=== PATIENT | male | born 1960 | race Caucasian/White ===

== ENCOUNTER → 2019-12-01 10:01 | Outpatient (POV) | payer OTHER, SELFPAY ==
[2019-12-01 10:29] VITALS: BP 142/89; PULSE 88; RESP 18; O2SAT 98; BMI 27.1
--- NOTE | 2019-12-01 15:08 | HMH.PMCON ---
Assessment and Plan (1) Degenerative joint disease (DJD) of lumbar spine Current visit: Yes Status: Chronic Qualifiers: Spinal osteoarthritis complication: with radiculopathy Qualified Code(s): M47.26 - Other spondylosis with radiculopathy, lumbar region Category: Medical Code(s): M47.816 - Spondylosis without myelopathy or radiculopathy, lumbar region (2) Lumbar radiculopathy Current visit: Yes Status: Chronic Category: Medical Code(s): M54.16 - Radiculopathy, lumbar region - Assessment and plan all Dx Assessment and Plan for all problems:: We will set the patient up for an L4-L5 lumbar epidural steroid injection and do believe it would be beneficial given his symptomology. I will follow-up with him after his injection reassess his symptoms at that time he is been instructed to call the office if he has any issues prior to his next appointment. Dr. Oreilly has reviewed this note and agrees with this plan of care. This note was dictated using voice recognition software and may contain errors or omissions HPI - Data of Consult Consult date: 12/01/19 Requesting Physician: Yamileth Campso APRN Primary Care Provider: JYOTI Sanon - Consult Narrative Reason for consult: Back pain History of present illness: Mr. Maharaj is a 59 year old male who presents today for consultation and risk to his low back pain. Patient has low back pain radiating down his left leg. Patient has difficulty with twisting and lifting and bending. Patient states that ice packs are beneficial in regards to alleviating his pain. Patient states that he has pain all the way to his toes. He rates his pain a 5 out of 10. Patient is tried chiropractic therapy and medications without much relief. He is continuing a home stretching program he does have an MRI showing degeneration and disc bulges he is interested in injective therapy. Patient is not on any anticoagulation. He has had pain over 6 months. CC: Yamileth Campos APRN [facility] History I have reviewed the patient's past medical history: Yes *Have you ever received a pneumonia vaccine?: Yes *Have you received a flu vaccine this season?: Yes Laterality Cases: Right: Arthroscopy Shoulder Other Surgeries: Yes: Appendectomy Amputation: No Fractures: No - *Social History Smoking Status: Current every day smoker Tobacco Type: cigarettes # Packs/Day (cigarettes): 2 Alcohol Intake: never *Occupational Status:: employed Housing: apartment Household Members: other *Travel in the last 8 weeks: None Family Hx:: Unable to obtain Review of Systems - Review of Systems ROS General: no recent weight change, no fever, no sleep disturbances Respiratory: no cough, no shortness of air, no recurring pulmonary infections Cardiovascular/Peripheral Vascular: No chest pain, No palpitations, no edema, no shortness of breath. Gastrointestinal: no new onset incontinence, normal bowel movements reported Genitourinary: no new onset incontinence Musculoskeletal: Back pain, leg pain Psychiatric: normal mood/ affect Neurological: [denies new onset weakness in extremities], [denies new onset balance issues] Objective Vital signs: Pulse Resp BP Pulse Ox 88 18 142/89 H 98 12/01/19 10:29 12/01/19 10:29 12/01/19 10:29 12/01/19 10:29 Narrative: Physical Exam General: Alert and oriented x3, no acute distress, pleasant and cooperative, [on room air] Lungs: Resps E/U, Symmetrical chest expansion, Eyes: PERRL Musculoskeletal: Flexion and extension of lumbar spine somewhat guarded secondary to pain, deep tendon reflexes normal, strength in upper and lower extremities [5/5], [abnormal gait noted] Neurological: speech clear, spa associate equal, no gross sensory deficits
== END ==
PROVIDERS: PCP Nurse Practitioner Family; Visit Provider Clinical Nurse Specialist Family Health
DX: M47.26 Other spondylosis with radiculopathy, lumbar region (principal); Z87.39 Personal history of other diseases of the musculoskeletal system and connective tissue; Z72.0 Tobacco use
CPT/HCPCS: 99202

== ENCOUNTER → 2019-12-28 12:56 | Outpatient (POV) | payer OTHER, SELFPAY ==
[2019-12-28 13:33] VITALS: BP 134/82; PULSE 67; RESP 18; O2SAT 98; BMI 27.1
--- NOTE | 2019-12-28 14:13 | HMH.PAINSOAP ---
[facility] Pain Management SOAP Note Subjective:: Patient is a pleasant 59-year-old white male who presents today for follow-up after his first lumbar epidural steroid injection. Patient is doing extremely well rating his pain a 3 out of 10. He is over 80% better. Patient is interested in pursuing the 3 epidural steroid injections in the series of epidural injections. Given the efficacy of the last one I do believe that would be beneficial. He is not on any anticoagulation therapy. He is continuing his anti-inflammatories and continuing a home stretching program. ROS General: no recent weight change, no fever, no sleep disturbances Respiratory: no cough, no shortness of air, no recurring pulmonary infections Cardiovascular/Peripheral Vascular: No chest pain, No palpitations, no edema, no shortness of breath. Gastrointestinal: no new onset incontinence, normal bowel movements reported Genitourinary: no new onset incontinence Musculoskeletal: Back pain, leg pain Psychiatric: normal mood/ affect, Neurological: [denies new onset weakness in extremities], [denies new onset balance issues] Objective:: Physical Exam General: Alert and oriented x3, no acute distress, pleasant and cooperative, [on room air] Lungs: Resps E/U, Symmetrical chest expansion, Eyes: PERRL Musculoskeletal: Flexion and extension of lumbar spine somewhat guarded secondary to pain, deep tendon reflexes normal, strength in upper and lower extremities [5/5], slightly antalgic gait noted Neurological: speech clear, environmental protection inspector equal, no gross sensory deficits Assessment:: Degenerative disc disease lumbar spine with lumbar radiculopathy Plan:: We will set up his second L4-L5 lumbar epidural steroid injection. Patient has been instructed to call the office if he has any issues prior to his next appointment. I will follow-up with him after this reassess his symptoms at that time .Dr. Oreilly has reviewed this note and agrees with this plan of care. This note was dictated using voice recognition software and may contain errors or omissions [facility] History I have reviewed the patient's past medical history: Yes Medical History: Reports:: Hyperlipidemia Denies:: Cancer, Diabetes Mellitus Type 2, Seizures *Have you ever received a pneumonia vaccine?: Yes *Have you received a flu vaccine this season?: Yes Laterality Cases: Right: Arthroscopy Shoulder Other Surgeries: Yes: Appendectomy Amputation: No Fractures: No - *Social History Smoking Status: Current every day smoker Tobacco Type: cigarettes # Packs/Day (cigarettes): 2 Alcohol Intake: current Alcohol Intake Frequency:: holidays/special occasions only *Occupational Status:: other Housing: apartment Household Members: other *Travel in the last 8 weeks: None Family Hx:: Unable to obtain
== END ==
PROVIDERS: PCP Nurse Practitioner Family; Visit Provider Clinical Nurse Specialist Family Health
DX: M51.16 Intervertebral disc disorders with radiculopathy, lumbar region (principal); Z87.39 Personal history of other diseases of the musculoskeletal system and connective tissue; Z72.0 Tobacco use
CPT/HCPCS: 99212

== ENCOUNTER → 2020-02-01 14:46 | Outpatient (POV) | payer OTHER, SELFPAY ==
--- NOTE | 2020-02-01 15:36 | HMH.VVPMSO ---
[facility] Virtual Visit SOAP Consent for virtual visit:: With the recent concerns about the COVID-19, we are trying to minimize exposure to you by shifting to telehealth appointments whenever possible. It restricts me from seeing you in person, but the trade off is protecting you during this pandemic. Can you see and hear me okay, and do you consent to this option? If not, I would be happy to see if we can reschedule your appointment in the future, when feasible. Has patient consented to this virtual visit?: Yes Subjective:: This visit was performed via telemedicine. The patient has chosen to have telemedicine visit for his/her symptoms due to risk associated with COVID19 Patient is a pleasant 59-year-old white male who presents today for follow-up after a lumbar epidural steroid injection at L4-L5. He is being treated for low back pain with lumbar radiculopathy symptoms. Patient is continuing to have back pain that radiates into his left leg. Patient has had 2 epidural steroid injections for which he says he got up to 60 to 70% relief. He says his pain has returned. He is currently using ice and heat therapies for up to 20 to 30% relief. Patient says he was seeing a chiropractor, however, is no longer able to see due to the pandemic. He says that his pain was initially in the left hip with radiation into his left leg, however, his pain is now radiating into his right hip. He says he is unable to take anti-inflammatories due to hematuria. Patient would like to undergo further injective therapy, however, he says he does understand that he cannot have injections due to the coronavirus pandemic and restrictions within the clinic at this time. Patient has not had recent physical therapy, however, he is concerned that he will not be able to afford physical therapy due to change of insurance at this time. He does rate his pain a 7 out of 10. Review of Systems General: No recent weight changes, no fever, no sleep disturbances Respiratory: No cough, no shortness of air, no recurring pulmonary infections Cardiovascular/peripheral vascular: No chest pain, no palpitations, no edema, no shortness of breath Gastrointestinal: No new onset incontinence, normal bowel movements reported Genitourinary: No new onset incontinence Musculoskeletal: Low back pain, right hip and left hip pain, left leg pain Psychiatric: Normal mood/affect Neurological: [Denies weakness in extremities], [denies balance issues] Objective:: Physical exam Constitutional: Healthy appearing, well-developed, alert and oriented, no acute distress noted Psychiatric: Judgment and insight intact. Mood normal, affect appropriate Head: Normocephalic, atraumatic, extraocular movement intact Respiratory: Nonlabored, non-dyspneic Cardiovascular: No cyanosis, no clubbing, no edema observed Skin: Head and neck, no lesions or rashes noted. Bilateral upper extremities no lesions or rashes noted Gait: Able to walk without assist of heel and toe walk Neurological: Sensation grossly intact per patient C3-T1 Musculoskeletal: Full range of motion, positive straight leg raise Assessment:: Degenerative disc disease lumbar spine with lumbar radiculopathy symptoms Plan:: Unfortunately, we cannot perform any type of injective therapy at this time due to the coronavirus pandemic restrictions within the clinic. For now, we will call in prednisone 20 mg 1 tablet p.o. twice daily x5 days for the patient. We will follow-up with the patient in 2 weeks to reassess his symptoms. He is not interested in physical therapy at this time due to change of insurance and he has concerns for financial ability to pay [id number]. He is unable to take anti-inflammatories due to hematuria. Patient has been instructed he has any concerns before his next appointment to contact the clinic. Dr. Oreilly has reviewed this note and agrees with this plan of care. This note was dictated using voice recognitio
== END ==
PROVIDERS: Visit Provider Clinical Nurse Specialist Family Health
DX: M51.16 Intervertebral disc disorders with radiculopathy, lumbar region (principal)
CPT/HCPCS: 99212

== ENCOUNTER → 2020-02-15 12:01 | Outpatient (POV) | payer OTHER, SELFPAY ==
--- NOTE | 2020-02-15 12:41 | HMH.VVPMSO ---
[facility] Virtual Visit SOAP Consent for virtual visit:: With the recent concerns about the COVID-19, we are trying to minimize exposure to you by shifting to telehealth appointments whenever possible. It restricts me from seeing you in person, but the trade off is protecting you during this pandemic. Can you see and hear me okay, and do you consent to this option? If not, I would be happy to see if we can reschedule your appointment in the future, when feasible. Has patient consented to this virtual visit?: Yes Subjective:: Patient is a pleasant 59-year-old white male who presents today for follow-up. Patient has had several epidural steroid injections with good relief however he states he has a new pain. During our telehealth visit he is pointing over his right SI joint. He states he has pain from there that wraps around into his front thigh and stops at his knee. He has difficulty with sitting. Patient has difficulty with standing as well. Patient states that his pain is continuous. He has tenderness to palpation over that right SI area. Patient and I discussed an SI joint injection he would like to move forward with this. ROS General: no recent weight change, no fever, no sleep disturbances Respiratory: no cough, no shortness of air, no recurring pulmonary infections Cardiovascular/Peripheral Vascular: No chest pain, No palpitations, no edema, no shortness of breath. Gastrointestinal: no new onset incontinence, normal bowel movements reported Genitourinary: no new onset incontinence Musculoskeletal: Right SI joint pain Psychiatric: normal mood/ affect, [denies depression], [denies anxiety] Neurological: [denies new onset weakness in extremities], [denies new onset balance issues] Objective:: Physical exam: Constitutional: Healthy appearing, well-developed, alert, in no acute distress Psychiatric: Judgment and insight intact, Alert and oriented x4 Mood and affect: Mood normal, affect appropriate Head and face: Inspection: Normocephalic atraumatic, extraocular movement intact Respiratory: Breathing nonlabored, nondyspneic Cardiovascular: No cyanosis, clubbing, or edema observed Skin: Head and neck: Skin with no lesions or rash observed Gait: Able to walk without assistive device: Able to heel and toe walk Neurologic: Sensation grossly intact per patient Musculoskeletal: Patient has tenderness over his right SI with self palpitation Assessment:: Degenerative disc disease lumbar spine with sacroiliitis Plan:: We will plan a right SI joint injection for the patient. I do believe given his symptomology it would be beneficial. I will follow-up with him afterwards and reassess his symptoms at that time he has been instructed to call the office if he has any issues prior to his next appointment. Dr. Oreilly has reviewed this note and agrees with this plan of care. This note was dictated using voice recognition software and may contain errors or omissions this encounter was performed as a telemedicine visit via secure 2 way video and audio to minimize risk and transmission of Covid-19. The patient and we understand the limitations of a telemedicine visit including inability to check reflexes, possibly missing subtle findings on physical exam. Alternative options were presented to the patient and the patient elected to proceed with the visit. We specifically discussed risk factors for Covid-19 including age, heart or lung disease, diabetes, immunosuppression and travel. We also discussed that NSAIDs may worsen Covid-19 infection symptoms and that they should not be used to treat Covid-19 symptoms. Patient was also informed that corticosteroids in any form oral or injectable will decrease immune response and may increase risk of Covid-[address] Oreilly has reviewed this patient's chart and this note and agrees with plan of care. Patient has been instructed to call the office if they have any issues prior to the next ap
== END ==
PROVIDERS: Visit Provider Clinical Nurse Specialist Family Health
DX: M51.36 Other intervertebral disc degeneration, lumbar region (principal); M46.1 Sacroiliitis, not elsewhere classified
CPT/HCPCS: 99212

== ENCOUNTER 2020-02-19 10:00 | Day surgery (SDC) | payer OTHER, SELFPAY ==
[2020-02-19 10:16] VITALS: BP 160/96; PULSE 74; RESP 18; TEMP 36.6; O2SAT 99; BMI 27.1
[2020-02-19 10:26] VITALS: BP 125/85; PULSE 85; RESP 18
[2020-02-19 10:32] VITALS: BP 125/87; PULSE 89; RESP 18; O2SAT 99
--- NOTE | 2020-02-19 10:41 | HMH.PMPROC ---
- Procedure Date: 02/19/20 Time: 10:41 Anesthesiologist:: Scar Oreilly MD Complications:: None Pre-procedure Diagnosis:: Sacroiliitis Post-procedure Diagnosis:: Same Indications for Procedure:: This patient is a pleasant 59-year-old white male who we are treating for low back pain and right hip pain. He has had epidurals in the past which have helped him tremendously. He now has a new pain over the right SI joint. He is tender over his right SI joint. Is positive SI joint compression test on the right side. Is positive Rodolfo's test on the right side. He has a positive David test on the right side. We will do a right SI joint injection today to help him with his pain symptoms. His pain is worsened over the last few days. It is now affecting activities of daily living and functionality. We will do an injection today to keep him out of the emergency room and off oral opioids. Procedure Details:: Right SI joint injection under fluoroscopy Informed consent was obtained and the risks and benefits of the procedure was going to the patient. Patient was taken to the procedure room. Patient was placed prone on the procedure table. The right hip was prepped using ChloraPrep. The skin and subcutaneous tissues were anesthetized using lidocaine. I placed a 22-gauge spinal needle into the inferior aspect of the right SI joint. Needle placement was confirmed with dye. After this we injected 5 mL bupivacaine 0.25% and Depo-Medrol 40 mg into the right SI joint. The patient tolerated the procedure well with no complication. Plan and Disposition:: We will follow-up with him in 2 weeks. Will reevaluate his symptoms at that time.
[2020-02-19 10:47] VITALS: BP 161/96; PULSE 74; RESP 20; O2SAT 99
== END 2020-02-19 10:49 | disposition home or self-care (01) ==
PROVIDERS: Visit Provider Anesthesiology
DX: M46.1 Sacroiliitis, not elsewhere classified (principal); I10 Essential (primary) hypertension; Z88.2 Allergy status to sulfonamides; Z88.8 Allergy status to other drugs, medicaments and biological substances; Z79.899 Other long term (current) drug therapy
CPT/HCPCS: 27096; G0260; J1040; Q9966

== ENCOUNTER → 2020-02-29 12:00 | Outpatient (POV) | payer OTHER, SELFPAY ==
--- NOTE | 2020-03-01 07:45 | HMH.VVPMSO ---
[facility] Virtual Visit SOAP Consent for virtual visit:: With the recent concerns about the COVID-19, we are trying to minimize exposure to you by shifting to telehealth appointments whenever possible. It restricts me from seeing you in person, but the trade off is protecting you during this pandemic. Can you see and hear me okay, and do you consent to this option? If not, I would be happy to see if we can reschedule your appointment in the future, when feasible. Has patient consented to this virtual visit?: Yes Subjective:: Patient is a pleasant 59-year-old white male who we are treating for low back pain and right hip pain. He has had epidurals in the past which helped tremendously however he has a new pain. He was tender over his SI joint however he did have an SI joint injection with no relief. Patient's MRI was re-reviewed with the patient and it was discussed that he does in fact have some facet arthropathy. We discussed potentially medial branch blocks for the patient's to see if this is potentially beneficial. He has difficulty with twisting motions. There is no radiation of his pain. Patient and I discussed the diagnostic nature of the medial branch block/facet joint injection and he understands. Patient rates his pain today a 7 out of 10. It is now becoming more difficult for him to do activities of daily living. He is tried and failed anti-inflammatories, certain injections and stretching programs. He does continue to stay as active as possible. ROS General: no recent weight change, no fever, no sleep disturbances Respiratory: no cough, no shortness of air, no recurring pulmonary infections Cardiovascular/Peripheral Vascular: No chest pain, No palpitations, no edema, no shortness of breath. Gastrointestinal: no new onset incontinence, normal bowel movements reported Genitourinary: no new onset incontinence Musculoskeletal: Back pain Psychiatric: normal mood/ affect Neurological: [denies new onset weakness in extremities], [denies new onset balance issues] Objective:: Physical exam: Constitutional: Healthy appearing, well-developed, alert, in no acute distress Psychiatric: Judgment and insight intact, Alert and oriented x4 Mood and affect: Mood normal, affect appropriate Head and face: Inspection: Normocephalic atraumatic, extraocular movement intact Respiratory: Breathing nonlabored, nondyspneic Cardiovascular: No cyanosis, clubbing, or edema observed Skin: Head and neck: Skin with no lesions or rash observed Gait: Able to walk without assistive device: Able to heel and toe walk Neurologic: Sensation grossly intact per patient Musculoskeletal:[It was noted on the video that the patient has difficulty with any kind of turning motion. He was guarded secondary to pain, also noted was grimacing on rotational movement. Assessment:: Lumbar facet arthropathy, degenerative disc disease lumbar spine Plan:: We will plan a L4-L5 L5-S1 bilateral lumbar facet joint injection/medial branch block. Patient understands if this is diagnostic in nature he may be a neurotomy candidate. Patient's not on any anticoagulation therapy. I will follow-up with him after the injection reassess his symptoms at that time. He has been instructed to call the office if he has any issues prior to his next appointment. This encounter was performed as a telemedicine visit via secure 2 way video and audio to minimize risk and transmission of Covid-19. The patient and we understand the limitations of a telemedicine visit including inability to check reflexes, possibly missing subtle findings on physical exam. Alternative options were presented to the patient and the patient elected to proceed with the visit. We specifically discussed risk factors for Covid-19 including age, heart or lung disease, diabetes, immunosuppression and travel. We also discussed that NSAIDs may worsen Covid-19 infection symptoms and that they should not be used to treat Covid-1
== END ==
PROVIDERS: Visit Provider Clinical Nurse Specialist Family Health
DX: M54.06 Panniculitis affecting regions of neck and back, lumbar region (principal); M51.36 Other intervertebral disc degeneration, lumbar region
CPT/HCPCS: 99212

== ENCOUNTER → 2020-03-09 09:09 | Outpatient (CLI) | payer OTHER, SELFPAY ==
[2020-03-10 15:07] LABS: Covid-19 Nasal PCR Sendout Lex NOT DETECTED
== END ==
PROVIDERS: Visit Provider Anesthesiology
DX: Z03.818 Encounter for observation for suspected exposure to other biological agents ruled out (principal)
CPT/HCPCS: U0003

== ENCOUNTER 2020-03-11 09:22 | Day surgery (SDC) | payer OTHER, SELFPAY ==
[2020-03-11 09:53] VITALS: BP 113/72; PULSE 72; RESP 18; TEMP 36.4; O2SAT 97; BMI 27.1
[2020-03-11 10:27] VITALS: BP 140/87; PULSE 72; RESP 18; O2SAT 98
[2020-03-11 10:28] VITALS: BP 142/85; PULSE 82; RESP 18; O2SAT 98
--- NOTE | 2020-03-11 10:35 | HMH.PMPROC ---
- Procedure Date: 03/11/20 Time: 10:35 Anesthesiologist:: Scar Oreilly MD Complications:: None Pre-procedure Diagnosis:: Degenerative disc disease of lumbar spine with lumbar radicular symptoms and facet arthropathy with lumbar spondylosis Post-procedure Diagnosis:: Same Indications for Procedure:: This patient is a pleasant 59-year-old white male who we are treating for low back pain lumbar radiculopathy symptoms and lumbar spondylosis with facet arthropathy. He did very well with his lumbar epidural steroid injection. This helped with his leg pain significantly. He still has some low back pain especially on the right side. We will do bilateral facet joint injection/medial branch blocks of the L4-5 and L5-S1 today. Procedure Details:: Lumbar medial branch block Informed consent was obtained and the risks and benefits of the procedure was explained to the patient. The back was prepped using ChloraPrep. The skin and subcutaneous tissues were anesthetized using lidocaine. I placed 22-gauge spinal needles into the facet joint/medial branches of L4-L5 and L5-S1 bilaterally. Needle placement was confirmed with dye. After this we injected 3 mL bupivacaine 0.25% and Depo-Medrol 20 mg into each facet joint/medial branch of L4-L5 and L5-S1 bilaterally. We used a total of 80 mg Depo-Medrol for both levels bilaterally. The patient tolerated the procedure well with no complications. Plan and Disposition:: We will follow-up with him in 2 weeks. Will reevaluate symptoms at that time. If these are successful we will plan on RFA of the medial branches of L4-5 and L5-S1 bilaterally.
[2020-03-11 10:40] VITALS: BP 125/81; PULSE 70; RESP 18; O2SAT 97
== END 2020-03-11 10:40 | disposition home or self-care (01) ==
LOC: SC.PAINP 09:23
PROVIDERS: Visit Provider Anesthesiology
DX: M51.16 Intervertebral disc disorders with radiculopathy, lumbar region (principal); M47.816 Spondylosis without myelopathy or radiculopathy, lumbar region; M54.06 Panniculitis affecting regions of neck and back, lumbar region; I10 Essential (primary) hypertension; Z72.0 Tobacco use; J44.9 Chronic obstructive pulmonary disease, unspecified
CPT/HCPCS: 64493; 64494; J1030; Q9966

== ENCOUNTER → 2020-04-05 09:02 | Outpatient (POV) | payer OTHER, SELFPAY ==
--- NOTE | 2020-04-05 15:45 | HMH.VVPMSO ---
[facility] Virtual Visit SOAP Consent for virtual visit:: With the recent concerns about the COVID-19, we are trying to minimize exposure to you by shifting to telehealth appointments whenever possible. It restricts me from seeing you in person, but the trade off is protecting you during this pandemic. Can you see and hear me okay, and do you consent to this option? If not, I would be happy to see if we can reschedule your appointment in the future, when feasible. Has patient consented to this virtual visit?: Yes Subjective:: Patient is a pleasant 60-year-old white male who presents today for follow-up. Patient had a medial branch block of the lumbar spine at L4-L5 L5-S1 bilaterally. Patient did extremely well. He rates his pain a 0 out of 10 today. Overall patient states that this is been the most beneficial injection for him. Patient and I discussed a neurotomy he would like to hold off on that at this time to see how long this lasts for him. Patient is continuing a home stretching program. ROS General: no recent weight change, no fever, no sleep disturbances Respiratory: no cough, no shortness of air, no recurring pulmonary infections Cardiovascular/Peripheral Vascular: No chest pain, No palpitations, no edema, no shortness of breath. Gastrointestinal: no new onset incontinence, normal bowel movements reported Genitourinary: no new onset incontinence Musculoskeletal: Back pain at times Psychiatric: normal mood/ affect, Neurological: [denies new onset weakness in extremities], [denies new onset balance issues] Objective:: Physical exam: Constitutional: Healthy appearing, well-developed, alert, in no acute distress Psychiatric: Judgment and insight intact, Alert and oriented x4 Mood and affect: Mood normal, affect appropriate Head and face: Inspection: Normocephalic atraumatic, extraocular movement intact Respiratory: Breathing nonlabored, nondyspneic Cardiovascular: No cyanosis, clubbing, or edema observed Skin: Head and neck: Skin with no lesions or rash observed Gait: Able to walk without assistive device: Able to heel and toe walk Neurologic: Sensation grossly intact per patient Musculoskeletal: Decreased range of motion lumbar spine Assessment:: Degenerative disc disease lumbar spine lumbar radiculopathy, spondylosis, facet arthropathy Plan:: We will see the patient back in 2 months reassess his symptoms at that time if he begins to hurt prior to this he will call our office. Dr. Oreilly has reviewed this note and agrees with this plan of care. This note was dictated using voice recognition software and may contain errors or omissions Time In:: 09:00 Time Out:: 10:00 [facility] History I have reviewed the patient's past medical history: Yes Medical History: Reports:: Hyperlipidemia Denies:: Cancer, Diabetes Mellitus Type 1, Diabetes Mellitus Type 2, MRSA, Seizures *Have you ever received a pneumonia vaccine?: Yes *Have you received a flu vaccine this season?: Yes Laterality Cases: Right: Arthroscopy Shoulder Other Surgeries: Yes: Appendectomy Amputation: No Fractures: No - *Social History Smoking Status: Current every day smoker Tobacco Type: cigarettes # Packs/Day (cigarettes): 1 Alcohol Intake: never Alcohol Intake Frequency:: holidays/special occasions only *Occupational Status:: other Housing: apartment Household Members: other *Travel in the last 8 weeks: None Family Hx:: Unable to obtain
== END ==
PROVIDERS: Visit Provider Clinical Nurse Specialist Family Health
DX: M51.16 Intervertebral disc disorders with radiculopathy, lumbar region (principal); M47.816 Spondylosis without myelopathy or radiculopathy, lumbar region; M12.88 Other specific arthropathies, not elsewhere classified, other specified site
CPT/HCPCS: 99212

== ENCOUNTER → 2020-05-05 08:56 | Outpatient (POV) | payer OTHER, SELFPAY ==
[2020-05-05 09:36] VITALS: BP 151/85; PULSE 65; RESP 18; O2SAT 99; BMI 26.1
--- NOTE | 2020-05-05 09:41 | HMH.PAINSOAP ---
[facility] Pain Management SOAP Note Subjective:: Patient is a pleasant 60-year-old white male who presents today for follow-up. He has been treated for low back pain. Patient underwent medial branch block/facet joint injections at L4-L5 L5-S1 bilaterally. He did very well with the injections. Patient says he got approximately 2 months of relief. He does report this given his initial injection and medial branch blocks. Patient says he was informed that he would need to undergo a second round of injections and possible RFA following the injections if he does get relief. Patient is scheduled to undergo hernia surgery with Dr. ring in [facility] and will need to postpone any further injective therapy until after his surgery. He does rate his pain a 3 out of 10 today. Review of Systems General: No recent weight changes, no fever, no sleep disturbances Respiratory: No cough, no shortness of air, no recurring pulmonary infections Cardiovascular/peripheral vascular: No chest pain, no palpitations, no edema, no shortness of breath Gastrointestinal: No new onset incontinence, normal bowel movements reported Genitourinary: No new onset incontinence Musculoskeletal: Low back pain Psychiatric: Normal mood/affect Neurological: [Denies weakness in extremities], [denies balance issues] Objective:: Physical exam General: Alert and oriented x3, no acute distress, pleasant and cooperative, [on room air] Lungs: Respirations even and unlabored, symmetrical chest expansion Eyes: PERRL Musculoskeletal: Flexion and extension of lumbar spine somewhat guarded secondary to pain, deep tendon reflexes normal, strength in upper and lower extremities [5/5], [abnormal gait noted] Neurological: Speech clear, long term care social worker equal, no gross sensory deficit Assessment:: Degenerative disc disease lumbar spine with lumbar radiculopathy symptoms spondylosis, facet arthropathy Plan:: Patient would like to undergo repeat medial branch blocks, however, he is scheduled to undergo hernia surgery weeks. We will schedule him to be seen back in the clinic in 6 weeks to reassess his symptoms and plan for repeat medial branch block/facet joint injections. Patient is not on any anticoagulation therapy. He has been instructed to contact clinic if he has any concerns for his next appointment. Virus education Dr. Oreilly has reviewed this note and agrees with this plan of care. This note was dictated using voice recognition software and make contain errors or omissions. [facility] History I have reviewed the patient's past medical history: Yes Medical History: Reports:: Hyperlipidemia Denies:: Cancer, Diabetes Mellitus Type 1, Diabetes Mellitus Type 2, MRSA, Seizures *Have you ever received a pneumonia vaccine?: Yes *Have you received a flu vaccine this season?: Yes Laterality Cases: Right: Arthroscopy Shoulder Other Surgeries: Yes: Appendectomy Amputation: No Fractures: No - *Social History Smoking Status: Current every day smoker Tobacco Type: cigarettes # Packs/Day (cigarettes): 1 Alcohol Intake: never Alcohol Intake Frequency:: holidays/special occasions only *Occupational Status:: other Housing: apartment Household Members: other *Travel in the last 8 weeks: None Family Hx:: Unable to obtain
== END ==
PROVIDERS: PCP Nurse Practitioner Family; Visit Provider Clinical Nurse Specialist Family Health
DX: M51.16 Intervertebral disc disorders with radiculopathy, lumbar region (principal); M47.816 Spondylosis without myelopathy or radiculopathy, lumbar region; M12.88 Other specific arthropathies, not elsewhere classified, other specified site
CPT/HCPCS: 99212

== ENCOUNTER → 2020-06-02 10:10 | Outpatient (POV) | payer OTHER, SELFPAY ==
[2020-06-02 11:21] VITALS: BP 135/88; PULSE 84; RESP 18; TEMP 36.6; O2SAT 98; BMI 25.8
--- NOTE | 2020-06-02 11:25 | HMH.PAINSOAP ---
[facility] Pain Management SOAP Note Subjective:: Patient is a 60-year-old white male who presents today for follow-up. He is being treated for low back pain. Patient underwent a medial branch block/facet joint injection at L4-L5 L5-S1 bilaterally. He did very well with the injections. He did undergo a right inguinal hernia pair approximately 2 weeks ago. He says he is doing well since having his procedure. At his previous visit, the patient I did discuss undergoing repeat medial branch block/facet joint injections 6 weeks out from his surgery. Patient would like to schedule his repeat medial branch block/facet joint injections. He is not on any anticoagulation therapy. He did well with the initial injections getting approximately 80% relief for up to a week. Review of Systems General: No recent weight changes, no fever, no sleep disturbances Respiratory: No cough, no shortness of air, no recurring pulmonary infections Cardiovascular/peripheral vascular: No chest pain, no palpitations, no edema, no shortness of breath Gastrointestinal: No new onset incontinence, normal bowel movements reported Genitourinary: No new onset incontinence Musculoskeletal: Low back pain Psychiatric: Normal mood/affect Neurological: [Denies weakness in extremities], [denies balance issues] Objective:: Physical exam General: Alert and oriented x3, no acute distress, pleasant and cooperative, [on room air] Lungs: Respirations even and unlabored, symmetrical chest expansion Eyes: PERRL Musculoskeletal: Flexion and extension of lumbar spine somewhat guarded secondary to pain, deep tendon reflexes normal, strength in upper and lower extremities [5/5], [abnormal gait noted] positive Kemps test Neurological: Speech clear, [employer] officer equal, no gross sensory deficit Assessment:: Degenerative disc disease lumbar spine with lumbar radiculopathy symptoms, facet arthropathy spondylosis lumbar spine Plan:: We will schedule the patient for repeat medial branch blocks at L4-L5 L5-S1 bilaterally. He is not on anticoagulation therapy. We will see him back in the clinic after his injection to reassess his symptoms. He has been instructed to contact the clinic if he has any concerns before his next appointment. The patient and I specifically discussed risk factors for COVID19. These risks include, but are not limited to age greater than 60, heart or lung disease, diabetes, immunosuppression, and travel. We also discussed NSAIDs may worsen COVID19 infection or symptoms. Patient should not use NSAIDs to treat COVID19 signs or symptoms. Patient was also informed that any type of corticosteroid of any form (oral or injection) will decrease the patient's immune system response and may increase the likelihood of COVID19 infection [address] symptoms[address] Oreilly has reviewed this note and agrees with this plan of care. This note was dictated using voice recognition software and make contain errors or omissions. [facility] History I have reviewed the patient's past medical history: Yes Medical History: Reports:: Hyperlipidemia Denies:: Cancer, Diabetes Mellitus Type 1, Diabetes Mellitus Type 2, MRSA, Seizures *Have you ever received a pneumonia vaccine?: Yes *Have you received a flu vaccine this season?: Yes Laterality Cases: Right: Arthroscopy Shoulder Other Surgeries: Yes: Appendectomy Amputation: No Fractures: No - *Social History Smoking Status: Current every day smoker Tobacco Type: cigarettes # Packs/Day (cigarettes): 1 Alcohol Intake: never Alcohol Intake Frequency:: holidays/special occasions only *Occupational Status:: other Housing: apartment Household Members: other *Travel in the last 8 weeks: None Family Hx:: Unable to obtain
== END ==
PROVIDERS: PCP Nurse Practitioner Family; Visit Provider Clinical Nurse Specialist Family Health
DX: M51.16 Intervertebral disc disorders with radiculopathy, lumbar region (principal); M12.88 Other specific arthropathies, not elsewhere classified, other specified site
CPT/HCPCS: 99212

== ENCOUNTER 2020-06-17 13:02 | Day surgery (SDC) | payer OTHER, SELFPAY ==
[2020-06-17 13:25] VITALS: BP 112/76; PULSE 80; RESP 18; TEMP 36.6; O2SAT 97; BMI 26.1
[2020-06-17 14:12] VITALS: BP 132/87; PULSE 89; RESP 18; O2SAT 98
--- NOTE | 2020-06-17 14:14 | P.PCN_ITS ---
- Procedure Date: 06/17/20 Time: 14:14 Anesthesiologist:: Scar Oreilly MD Complications:: None Pre-procedure Diagnosis:: Degenerative disc disease of lumbar spine with lumbar spondylosis and facet arthropathy of lumbar spine Post-procedure Diagnosis:: Same Indications for Procedure:: Patient is a pleasant 60-year-old white male who we are treating for low back pain with lumbar spondylosis and facet arthropathy of lumbar spine. He has done well with previous medial branch blocks of L4-5 and L5-S1. He had significant pain relief for several weeks. He was 89% better for several weeks. Pain is now returned. We will do repeat bilateral lumbar medial branch blocks of L4-5 L5-S1 again today. Procedure Details:: Lumbar medial branch block Informed consent was obtained and the risks and benefits of the procedure was explained to the patient. The back was prepped using ChloraPrep. The skin and subcutaneous tissues were anesthetized using lidocaine. I placed 22-gauge spinal needles into the facet joint/medial branches of L4-L5 and L5-S1 bilaterally. Needle placement was confirmed with dye. After this we injected 3 mL bupivacaine 0.25% and Depo-Medrol 20 mg into each facet joint/medial branch of L4-L5 and L5-S1 bilaterally. We used a total of 80 mg Depo-Medrol for both levels bilaterally. The patient tolerated the procedure well with no co mplications. Plan and Disposition:: We will follow-up with him in 2 weeks. Will reevaluate symptoms at that time. If these are successful however not long-lasting then we will plan on radiofrequency ablation to the same levels of L4-5 and L5-S1 bilaterally.
[2020-06-17 14:25] VITALS: BP 126/69; PULSE 74; RESP 18; O2SAT 97
== END 2020-06-17 14:26 | disposition home or self-care (01) ==
LOC: SC.PAINP 13:04
PROVIDERS: PCP Nurse Practitioner Family; Visit Provider Anesthesiology
DX: M51.36 Other intervertebral disc degeneration, lumbar region (principal); M47.816 Spondylosis without myelopathy or radiculopathy, lumbar region; M12.88 Other specific arthropathies, not elsewhere classified, other specified site; K21.9 Gastro-esophageal reflux disease without esophagitis; J44.9 Chronic obstructive pulmonary disease, unspecified; N18.9 Chronic kidney disease, unspecified; N05.9 Unspecified nephritic syndrome with unspecified morphologic changes; Z90.49 Acquired absence of other specified parts of digestive tract; Z88.2 Allergy status to sulfonamides; Z88.8 Allergy status to other drugs, medicaments and biological substances; Z72.0 Tobacco use; Z79.899 Other long term (current) drug therapy
CPT/HCPCS: 64493; 64494; J1030; Q9966

== ENCOUNTER → 2020-07-14 15:01 | Outpatient (POV) | payer OTHER, SELFPAY ==
[2020-07-14 15:49] VITALS: BP 121/76; PULSE 76; RESP 18; TEMP 36.6; O2SAT 96; BMI 26.1
--- NOTE | 2020-07-14 16:12 | HMH.PAINSOAP ---
[facility] Pain Management SOAP Note Subjective:: Patient is a 60-year-old white male who presents today for follow-up after medial branch block/facet joint injections. He has been treated for chronic low back pain with lumbar spondylosis and facet arthropathy of his lumbar spine. Patient did get up to 90% relief with his first round of injections. He says he got approximately 70% relief this time for approximately 4 to 5 days. Patient I had a long discussion that this was a positive diagnostic test for facet arthropathy and would need an RFA, however, he is not interested in pursuing further procedures in the clinic at this time. Patient has requested a neurosurgical consult. Patient feels that injections are not giving him relief that he has expected. He does not feel that the RFA will give him relief either. He says that he feels that he needs to have surgical intervention for long-term treatment. 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 His pain is primarily in his low back that is worse with leaning forward. He also has pain with twisting and turning at his waist. He does rate his pain a 7 out of 10 today. Patient has tried physical therapy along with a continued home stretching program and ice and heat therapies. Review of Systems General: No recent weight changes, no fever, no sleep disturbances Respiratory: No cough, no shortness of air, no recurring pulmonary infections Cardiovascular/peripheral vascular: No chest pain, no palpitations, no edema, no shortness of breath Gastrointestinal: No new onset incontinence, normal bowel movements reported Genitourinary: No new onset incontinence Musculoskeletal: Low back pain Psychiatric: Normal mood/affect Neurological: [Denies weakness in extremities], [denies balance issues] Objective:: Physical exam General: Alert and oriented x3, no acute distress, pleasant and cooperative, [on room air] Lungs: Respirations even and unlabored, symmetrical chest expansion Eyes: PERRL Musculoskeletal: Flexion and extension of bar spine somewhat guarded secondary to pain, deep tendon reflexes normal, strength in upper and lower extremities [5/5], [abnormal gait noted], positive Kemps test Neurological: Speech clear, roll inspector equal, no gross sensory deficit Assessment:: Degenerative disc disease lumbar spine with lumbar spondylosis facet arthropathy lumbar spine Plan:: We will schedule the patient for a neurosurgical consult. He does not want to proceed with any further procedures within the clinic at this time. He feels that surgery may be a better option for his pain. Patient I did discuss that if he is not considered a surgical candidate we can perform an RFA to give him some relief. I do think the patient would benefit from RFA's, however, he is not in agreement at this time. If the patient has any questions he can contact the clinic. We will refer him to neurosurgery. The patient and I specifically discussed risk factors for COVID19. These risks include, but are not limited to age greater than 60, heart or lung disease, diabetes, immunosuppression, and travel. We also discussed NSAIDs may worsen COVID19 infection or symptoms. Patient should not use NSAIDs to treat COVID19 signs or symptoms. Patient was also informed that any type of corticosteroid of any form (oral or injection) will decrease the patient's immune system response and may increase the likelihood of COVID19 infection [address] symptoms[address] Oreilly has reviewed this note and agrees with this plan of care. This note was dictated using voice recognition software and make contain errors or omissions. [facility] History I have reviewed the patient's past medical history: Yes Medical History: Reports:: Hyperlipidemia Denies:: Cancer, Diabetes Mellitus Type 1, Diabetes Mellitus Type 2, MRSA, Seizures *Have you ever received a pneumo
== END ==
PROVIDERS: PCP Nurse Practitioner Family; Visit Provider Clinical Nurse Specialist Family Health
DX: M51.36 Other intervertebral disc degeneration, lumbar region (principal); M47.816 Spondylosis without myelopathy or radiculopathy, lumbar region; M12.88 Other specific arthropathies, not elsewhere classified, other specified site
CPT/HCPCS: 99212

== ENCOUNTER → 2020-07-28 15:36 | Outpatient (CLI) | payer OTHER, SELFPAY ==
--- NOTE | 2020-07-28 | MR_ITS ---
PROCEDURE: MR LUMBAR SPINE WO CON CLINICAL INDICATION: LBP LBP WITH LEFT LEG PAIN X1YR. NO TRAUMA OR INJURY. NO PRIOR COMPARISON: No exams were available for comparison TECHNIQUE: Standard multiplanar multiecho sequences are performed without contrast. 3-D MIP and myelographic images are also rendered and reviewed FINDINGS: There is normal alignment. The spinal cord ends at the L1 level. T11-T12: Mild degenerative disc disease. T12-L1: Unremarkable. L1-L2: Mild disc desiccation. There is increased T2 signal involving the anterior inferior aspect of the L1 vertebral body which may be discogenic in nature slightly decreased on T1 suggesting type 1 endplate changes. L2-L3: Minimal concentric bulging disc with mild facet and ligamentum hypertrophy. Heterogeneous signal intensity involves the anterior superior endplate of L3 which may represent type 2 endplate changes. L3-L4: Minimal bulging disc with mild facet and ligamentum hypertrophy and mild bilateral foraminal and lateral recess narrowing. L4-5: Minimal bulging disc with mild facet ligamentum hypertrophy with mild bilateral lateral recess and foraminal narrowing L5-S1: Facet and ligamentum hypertrophy. IMPRESSION: 1. No canal stenosis or extruded herniated disc. 2. Mild multilevel lumbar spondylosis as detailed above. Dictated by: Mulugeta Cuevas MD 07/30/2020 11:27 Mulugeta Cuevas MD in [place] 07/30/2020 11:27
== END ==
PROVIDERS: PCP Nurse Practitioner Family; Visit Provider Clinical Nurse Specialist Family Health
DX: M54.5 Low back pain (principal)
CPT/HCPCS: 72148; 76376

== ENCOUNTER → 2020-10-20 13:38 | Outpatient (POV) | payer BC, SELFPAY ==
[2020-10-20 13:54] VITALS: BP 115/75; PULSE 69; RESP 20; TEMP 36.8; O2SAT 95; BMI 27.1
--- NOTE | 2020-10-20 14:09 | P.CONS_ITS ---
[facility] Pain Management SOAP Note Subjective:: Patient is a 60-year-old white male who presents today for follow-up after medial branch block/facet joint injections. He has been treated for chronic low back pain with lumbar spondylosis and facet arthropathy lumbar spine. Patient has undergone 2 rounds of medial branch block/facet joint injections at L4-L5 and L5-S1. Patient got up to 90% relief with the initial round of injections. His second round of injections he got up to 70% relief. He did discuss an RFA following his second round of injections, however, wanted to follow-up with the neurosurgeon. After following up with the neurosurgeon, he was informed that he would most likely benefit from an RFA. He is back today to schedule the RFA. He has tried and failed other conservative therapies of physical therapy for greater than 6 weeks along with anti-inflammatories and a home stretching program. Review of Systems General: No recent weight changes, no fever, no sleep disturbances Respiratory: No cough, no shortness of air, no recurring pulmonary infections Cardiovascular/peripheral vascular: No chest pain, no palpitations, no edema, no shortness of breath Gastrointestinal: No new onset incontinence, normal bowel movements reported Genitourinary: No new onset incontinence Musculoskeletal: Low back pain worse when bending forward and extension at waist Psychiatric: Normal mood/affect Neurological: [Denies weakness in extremities], [denies balance issues] Objective:: Physical exam General: Alert and oriented x3, no acute distress, pleasant and cooperative, [on room air] Lungs: Respirations even and unlabored, symmetrical chest expansion Eyes: PERRL Musculoskeletal: Flexion and extension of lumbar spine somewhat guarded secondary to pain, deep tendon reflexes normal, strength in upper and lower extremities [5/5], [abnormal gait noted], positive Kemps test Neurological: Speech clear, business project manager equal, no gross sensory deficit Assessment:: Degenerative disc disease lumbar spine with lumbar spondylosis and facet arthropathy Plan:: We will schedule patient for a a L4-L5 L5-S1 on the left side. He is having worsening pain at this time on the left side following the RFA to the left side we will plan go to the right side. Patient has been instructed to contact clinic if he has any concerns for his next appointment. He is not on any anticoagulation therapy. Risks and benefits of the procedure have been explained to the patient. Patient would like to proceed with the procedure. Dr. Oreilly has reviewed this note and agrees with this plan of care. This note was dictated using voice recognition software and make contain errors or omissions. [facility] History I have reviewed the patient's past medical history: Yes Medical History: Reports:: Hyperlipidemia Denies:: Cancer, Diabetes Mellitus Type 1, Diabetes Mellitus Type 2, MRSA, Seizures *Have you ever received a pneumonia vaccine?: No *Have you received a flu vaccine this season?: No Laterality Cases: Right: Arthroscopy Shoulder Other Surgeries: Yes: Appendectomy, Hernia Repair Amputation: No Fractures: No - *Social History Smoking Status: Current every day smoker Tobacco Type: cigarettes # Packs/Day (cigarettes): 1 Alcohol Intake: never Alcohol Intake Frequency:: holidays/special occasions only *Occupational Status:: retired Housing: apartment Household Members: other *Travel in the last 8 weeks: None Family Hx:: Unable to obtain
== END ==
PROVIDERS: PCP Nurse Practitioner Family; Visit Provider Clinical Nurse Specialist Family Health
DX: M51.16 Intervertebral disc disorders with radiculopathy, lumbar region (principal); M54.06 Panniculitis affecting regions of neck and back, lumbar region
CPT/HCPCS: 99212

== ENCOUNTER 2020-11-11 08:57 | Day surgery (SDC) | payer BC, SELFPAY ==
[2020-11-11 09:24] VITALS: BP 132/80; PULSE 74; RESP 18; TEMP 36.7; O2SAT 98; BMI 27.4
[2020-11-11 10:18] VITALS: BP 132/78; PULSE 79; RESP 18; O2SAT 98
[2020-11-11 10:21] VITALS: BP 140/78; PULSE 85; RESP 18; O2SAT 98
--- NOTE | 2020-11-11 10:25 | HMH.PMPROC ---
- Procedure Date: 11/11/20 Time: 10:25 Anesthesiologist:: Scar Oreilly MD Complications:: None Pre-procedure Diagnosis:: Degenerative disc disease of lumbar spine with lumbar spondylosis and lumbar facet arthropathy Post-procedure Diagnosis:: Same Indications for Procedure:: This patient is a pleasant 60-year-old white male who we are treating for low back pain with lumbar spondylosis and lumbar facet arthropathy. He is done well with 2 previous medial branch block/facet joint injections of L4-5 and L5-S1 he was 90% better for several weeks. He has had neurosurgical consultation and it was recommended that he is not a surgical candidate however he would be better served with RF ablation to these facet joints. With success from the medial branch blocks we will plan on RF ablation to the left side of facet joints of L4-5 and L5-S1 today. This will be followed by the right side in 2 weeks. Procedure Details:: Lumbar RFA informed consent was obtained and the risk and benefits of the procedure was explained to the patient. Patient was placed prone on the procedure table. The patient was prepped and draped in sterile fashion. C-arm fluoroscopy was used to view the lumbar spine. The skin and subcutaneous tissues were anesthetized using lidocaine. I placed 20-gauge RF needles into the facet joints of L4-5 and L5-S1 levels on the left side. We underwent sensory stimulation. There is good sensory stimulation at 0.8 V. We underwent motor stimulation. There is no motor stimulation at 2 V. We then anesthetized these levels with lidocaine and Depo-Medrol. I used a total of 40 mg Depo-Medrol for both levels. I then burned both levels of L4-L5 and L5-S1 facet joint/medial branches on the left side for 4 minutes at 80 ?C. Patient tolerated the procedure well with no complication. Plan and Disposition:: We will follow-up with him in 2 weeks. Will reevaluate symptoms at that time. We will plan on RF ablation to the facet joints of L4-5 and L5-S1 on the right side.
[2020-11-11 10:30] VITALS: BP 123/78; PULSE 66; RESP 20; O2SAT 98
== END 2020-11-11 10:30 | disposition home or self-care (01) ==
LOC: SC.PAINP 09:01
PROVIDERS: PCP Nurse Practitioner Family; Visit Provider Anesthesiology
DX: M51.36 Other intervertebral disc degeneration, lumbar region (principal); M47.816 Spondylosis without myelopathy or radiculopathy, lumbar region; M54.06 Panniculitis affecting regions of neck and back, lumbar region; I10 Essential (primary) hypertension; E78.5 Hyperlipidemia, unspecified; Z72.0 Tobacco use; K21.9 Gastro-esophageal reflux disease without esophagitis; N18.9 Chronic kidney disease, unspecified; Z87.448 Personal history of other diseases of urinary system; Z88.2 Allergy status to sulfonamides; Z88.8 Allergy status to other drugs, medicaments and biological substances; Z79.899 Other long term (current) drug therapy
CPT/HCPCS: 64635; 64636; J1040

== ENCOUNTER 2020-12-02 09:21 | Day surgery (SDC) | payer BC, SELFPAY ==
[2020-12-02 09:29] VITALS: BP 122/78; PULSE 76; RESP 18; TEMP 36.4; O2SAT 98; BMI 27.1
[2020-12-02 10:32] VITALS: BP 146/85; PULSE 78; RESP 18
[2020-12-02 10:34] VITALS: BP 148/88; PULSE 79; RESP 18; O2SAT 98
--- NOTE | 2020-12-02 10:45 | HMH.PMPROC ---
- Procedure Date: 12/02/20 Time: 10:45 Anesthesiologist:: Scar Oreilly MD Complications:: None Pre-procedure Diagnosis:: Degenerative disc disease of lumbar spine with lumbar spondylosis and lumbar facet arthropathy Post-procedure Diagnosis:: Same Indications for Procedure:: Patient is a pleasant 60-year-old white male who we are treating for low back pain with lumbar spondylosis and lumbar facet arthropathy. He is status post RF ablation to the facet joints of L4-5 and L5-S1 on the left side. He has gotten great pain relief from the RFA to both levels on the side. He presents for RF ablation to the levels of L4-5 and L5-S1 on the right side today. Procedure Details:: Lumbar RFA informed consent was obtained and the risk and benefits of the procedure was explained to the patient. Patient was placed prone on the procedure table. The patient was prepped and draped in sterile fashion. C-arm fluoroscopy was used to view the lumbar spine. The skin and subcutaneous tissues were anesthetized using lidocaine. I placed 20-gauge RF needles into the facet joints of 4 5 and L5-S1 levels on the right side. We underwent sensory stimulation. There is good sensory stimulation at 0.8 V. We underwent motor stimulation. There is no motor stimulation at 2 V. We then anesthetized these levels with lidocaine and Depo-Medrol. I used a total of 40 mg Depo-Medrol for both levels. I then burned both levels of L4-5 and L5-S1 facet joint/medial branches on the right side for 4 minutes at 80 ?C. Patient tolerated the procedure well with no complication. Plan and Disposition:: Patient continues to do physical therapy. We will follow-up with him in 2 weeks. Will reevaluate symptoms at that time.
[2020-12-02 10:55] VITALS: BP 137/77; PULSE 76; RESP 18; O2SAT 98
== END 2020-12-02 10:55 | disposition home or self-care (01) ==
LOC: SC.PAINP 09:21
PROVIDERS: PCP Nurse Practitioner Family; Visit Provider Anesthesiology
DX: M51.36 Other intervertebral disc degeneration, lumbar region (principal); M47.816 Spondylosis without myelopathy or radiculopathy, lumbar region; M54.06 Panniculitis affecting regions of neck and back, lumbar region; I10 Essential (primary) hypertension; K21.9 Gastro-esophageal reflux disease without esophagitis; J44.9 Chronic obstructive pulmonary disease, unspecified; N18.9 Chronic kidney disease, unspecified; Z88.2 Allergy status to sulfonamides; Z88.8 Allergy status to other drugs, medicaments and biological substances
CPT/HCPCS: 64635; 64636; J1040

== ENCOUNTER → 2021-01-09 10:38 | Outpatient (POV) | payer BC, SELFPAY ==
[2021-01-09 11:26] VITALS: BP 132/72; PULSE 71; RESP 18; O2SAT 98; BMI 28.7
--- NOTE | 2021-01-09 11:39 | P.CONS_ITS ---
[facility] Pain Management SOAP Note Subjective:: Patient is a pleasant 60-year-old white male here today for a follow-up. He did have RFA ablation to facet joints of L4 and L5 and L5-S1 to bilateral sides. He states he has gotten improvement in pain on the right side however, he continues to have increasing pain in his left hip. He rates his pain today a 4 out of 10 he describes the pain as aching in the left hip as well as is and tingling in the left leg. He does have tenderness over the left SI joint. He states that eating for prolonged periods of time causes increase in pain. Standing helps to improve the pain. He does continue physical therapy at this time for his low back pain. ROS General: no recent weight change, no fever, no sleep disturbances Respiratory: no cough, no shortness of air, no recurring pulmonary infections Cardiovascular/Peripheral Vascular: No chest pain, No palpitations, no edema, no shortness of breath. Gastrointestinal: no new onset incontinence, normal bowel movements reported Genitourinary: no new onset incontinence Musculoskeletal: [Left hip pain] Psychiatric: normal mood/ affect, [denies depression], [denies anxiety] Neurological: [denies new onset weakness in extremities], [denies new onset balance issues] Objective:: Physical Exam General: Alert and oriented x3, no acute distress, pleasant and cooperative, [on room air] Lungs: Resps E/U, Symmetrical chest expansion, [CTA bilateral] Eyes: PERRL Musculoskeletal: Flexion and extension of lumbar spine somewhat guarded secondary to pain, deep tendon reflexes normal, strength in upper and lower extremities [5/5], [abnormal gait noted], positive Rodolfo's, compression and distraction exam left SI joint Neurological: speech clear, watch band assembler equal, no gross sensory deficits Assessment:: Degenerative disc disease of lumbar spine with lumbar spondylosis and lumbar facet arthropathy, left sacroiliitis Plan:: He has gotten little relief from the RFA on the left side, exam today indicates left SI joint pain. We discussed the option of left SI joint injection. The procedure, benefits, and risks were discussed, he would like to proceed with the injection. We will schedule him for a left SI joint injection given his symptomology I do believe this will be beneficial. I instructed him to contact the clinic prior to that injection if he has any concerns. Dr. Oreilly has reviewed this note and agrees with this plan of care. This note was dictated using voice recognition software and may contain errors or omissions [facility] History I have reviewed the patient's past medical history: Yes Medical History: Reports:: Hyperlipidemia Denies:: Cancer, Diabetes Mellitus Type 1, Diabetes Mellitus Type 2, MRSA, Seizures *Have you ever received a pneumonia vaccine?: Yes *Have you received a flu vaccine this season?: Yes Other Medical History: Denies: Blood Transfusion Reaction Laterality Cases: Right: Arthroscopy Shoulder Other Surgeries: Yes: Appendectomy, Hernia Repair Amputation: No Fractures: No - *Social History Smoking Status: Current every day smoker Tobacco Type: cigarettes # Packs/Day (cigarettes): 2 Alcohol Intake: never Alcohol Intake Frequency:: holidays/special occasions only *Occupational Status:: other Housing: house Household Members: spouse *Travel in the last 8 weeks: None Family Hx:: Unable to obtain
== END ==
PROVIDERS: PCP Nurse Practitioner Family; Visit Provider Clinical Nurse Specialist Family Health
DX: M51.36 Other intervertebral disc degeneration, lumbar region (principal); M47.816 Spondylosis without myelopathy or radiculopathy, lumbar region; M54.06 Panniculitis affecting regions of neck and back, lumbar region; M46.1 Sacroiliitis, not elsewhere classified
CPT/HCPCS: 99212; G0463

== ENCOUNTER 2021-01-13 12:00 | Day surgery (SDC) | payer BC, SELFPAY ==
[2021-01-13 12:35] VITALS: BP 116/77; PULSE 69; RESP 18; TEMP 36.4; O2SAT 96; BMI 27.1
[2021-01-13 13:17] VITALS: BP 125/78; PULSE 74; RESP 18; O2SAT 98
[2021-01-13 13:18] VITALS: BP 128/89; PULSE 85; RESP 18; O2SAT 99
--- NOTE | 2021-01-13 13:18 | P.PCN_ITS ---
- Procedure Date: 01/13/21 Time: 13:18 Anesthesiologist:: Scar Oreilly MD Complications:: None Pre-procedure Diagnosis:: Sacroiliitis Post-procedure Diagnosis:: Same Indications for Procedure:: Patient is a pleasant 60-year-old white male who we are treating for left-sided hip pain. He is tender over his left SI joint. Is positive Rodolfo's test on the left side. Is positive David test on left side. Is positive SI joint compression test on the left side. He has a positive Rodolfo's test on left side. We will do a left SI joint injection under fluoroscopy today to help with his p ain symptoms. Procedure Details:: Left SI joint injection under fluoroscopy Informed consent was obtained and the risks and benefits of the procedure was explained to the patient. Patient was taken to the procedure room. Patient was placed prone on the procedure table. The left hip was prepped using ChloraPrep. The skin and subcutaneous tissues were anesthetized using lidocaine. I placed a 22-gauge spinal needle into the inferior aspect of the left SI joint. Needle placement was confirmed with dye. After this we injected 5 mL bupivacaine 0.25% and Depo-Medrol 40 mg into the left SI joint. The patient tolerated the procedure well with no complication. Plan and Disposition:: We will follow-up with him in 2 weeks. Will reevaluate symptoms at that time.
[2021-01-13 13:35] VITALS: BP 124/83; PULSE 70; RESP 18; O2SAT 97
== END 2021-01-13 13:40 | disposition home or self-care (01) ==
LOC: SC.PAINP 12:01
PROVIDERS: PCP Nurse Practitioner Family; Visit Provider Anesthesiology
DX: M46.1 Sacroiliitis, not elsewhere classified (principal); I10 Essential (primary) hypertension; K21.9 Gastro-esophageal reflux disease without esophagitis; Z88.2 Allergy status to sulfonamides; Z88.8 Allergy status to other drugs, medicaments and biological substances; Z72.0 Tobacco use; E78.5 Hyperlipidemia, unspecified; J44.9 Chronic obstructive pulmonary disease, unspecified; D64.9 Anemia, unspecified; Z79.899 Other long term (current) drug therapy
CPT/HCPCS: 27096; G0260; J1040; Q9966

== ENCOUNTER → 2021-02-16 08:58 | Outpatient (POV) | payer BC, SELFPAY ==
[2021-02-16 09:14] VITALS: BP 148/98; PULSE 74; RESP 18; O2SAT 98; BMI 29.8
--- NOTE | 2021-02-16 09:15 | P.CONS_ITS ---
[facility] Pain Management SOAP Note Subjective:: Patient is an 60-year-old white male who presents today for follow-up after left SI joint injection. Patient is doing extremely well rating his pain a 1 out of 10. He is also continuing physical therapy. He states that this is extremely beneficial for him and would like to continue it. Patient states he does have some stiffness on long drives. Patient is currently on Tylenol ROS General: no recent weight change, no fever, no sleep disturbances Respiratory: no cough, no shortness of air, no recurring pulmonary infections Cardiovascular/Peripheral Vascular: No chest pain, No palpitations, no edema, no shortness of breath. Gastrointestinal: no new onset incontinence, normal bowel movements reported Genitourinary: no new onset incontinence Musculoskeletal: Back pain Psychiatric: normal mood/ affect Neurological: [denies new onset weakness in extremities], [denies new onset balance issues] Objective:: Physical Exam General: Alert and oriented x3, no acute distress, pleasant and cooperative, [on room air] Lungs: Resps E/U, Symmetrical chest expansion, Eyes: PERRL Musculoskeletal: Flexion and extension of lumbar spine somewhat guarded secondary to pain, deep tendon reflexes normal, strength in upper and lower extremities [5/5], [slightly antalgic gait noted] Neurological: speech clear, shell sorter equal, no gross sensory deficits Assessment:: Sacroiliitis Plan:: We will continue the patient's physical therapy. We will see him back in 3 months reassess his symptoms at that time he has been instructed to call the office if he has any issues prior to his next appointment. Dr. Oreilly has reviewed this note and agrees with this plan of care. This note was dictated using voice recognition software and may contain errors or omissions [facility] History I have reviewed the patient's past medical history: Yes Medical History: Reports:: Hyperlipidemia Denies:: Cancer, Diabetes Mellitus Type 1, Diabetes Mellitus Type 2, MRSA, S eizures *Have you ever received a pneumonia vaccine?: No *Have you received a flu vaccine this season?: No Other Medical History: Denies: Blood Transfusion Reaction Laterality Cases: Right: Arthroscopy Shoulder Other Surgeries: Yes: Appendectomy, Hernia Repair Amputation: No Fractures: No - *Social History Smoking Status: Current every day smoker Tobacco Type: cigarettes # Packs/Day (cigarettes): 1 Alcohol Intake: never Alcohol Intake Frequency:: holidays/special occasions only *Occupational Status:: employed Housing: house Household Members: spouse *Travel in the last 8 weeks: None Family Hx:: Unable to obtain
== END ==
PROVIDERS: PCP Nurse Practitioner Family; Visit Provider Clinical Nurse Specialist Family Health
DX: M46.1 Sacroiliitis, not elsewhere classified (principal)
CPT/HCPCS: 99212; G0463

== ENCOUNTER → 2021-04-17 09:10 | Outpatient (POV) | payer BC, SELFPAY ==
[2021-04-17 09:42] VITALS: BP 128/79; PULSE 69; RESP 18; O2SAT 96; BMI 27.1
--- NOTE | 2021-04-17 20:02 | HMH.PAINSOAP ---
[facility] Pain Management SOAP Note Subjective:: Patient is a 61-year-old white male who presents today for follow-up. Patient was seen in the clinic on after left SI joint injection. Patient did start back to physical therapy due to increased pain in his left low back area radiating into his left hip and leg. He says his left leg is beginning to give out . Patient has had medial branch blocks as well as RFA. He got excellent relief on the right side, however, the pain to his left low back area has returned. He says he has had medial branch blocks since his RFA which have not given him much relief of his left lower extremity pain as well as his left low back pain. He reports he got more relief with the left SI joint injection. He says he has weakness in his left leg as well. He does report the pain to be radiating into his left buttock as well. He does rate his pain a 3 out of 10 today. He and I discussed possible repeat SI injection as well as possible corner lock if he gets relief with the SI injection. If the patient continues to have significant relief after the SI injections, he may be an epidural candidate versus spinal cord stimulation. Review of Systems General: No recent weight changes, no fever, no sleep disturbances Respiratory: No cough, no shortness of air, no recurring pulmonary infections Cardiovascular/peripheral vascular: No chest pain, no palpitations, no edema, no shortness of breath Gastrointestinal: No new onset incontinence, normal bowel movements reported Genitourinary: No new onset incontinence Musculoskeletal: Left low back pain with radiation into left buttock, left hip, and left leg, weakness in left leg Psychiatric: Normal mood/affect Neurological: weakness in left extremities], [denies balance issues] Objective:: Physical exam General: Alert and oriented x3, no acute distress, pleasant and cooperative, [on room air] Lungs: Respirations even and unlabored, symmetrical chest expansion Eyes: PERRL Musculoskeletal: Flexion and extension of lumbar spine somewhat guarded secondary to pain, deep tendon reflexes normal, strength in upper and lower extremities [4/5], [abnormal gait noted], positive Rodolfo's test, positive distraction test, positive compression test Neurological: Speech clear, eclectic doctor equal, no gross sensory deficit Assessment:: Degenerative disc disease lumbar spine with lumbar radiculopathy symptoms, sacroiliitis left side Plan:: Patient did not get relief with his previous medial branch blocks. He got significant relief with the RFA on the right side, however, his left low back pain has not subsided. We will schedule him for a left SI joint injection. He has had this injection in the past for which he got approximately 60 to 70% relief. He got relief for 1 week. We will see him back in the clinic after the injection to see if it helps. If he does get relief, we will discuss corner lock. If the patient does not get any relief with the SI injection, he may benefit from a lumbar epidural steroid injection. We will see him back in the clinic to discuss a further plan of care after the injection. Risks and benefits of the procedure have been explained to the patient. Patient would like to proceed with the procedure. Patient has been instructed to contact the clinic with any concerns before the next appointment. Dr. Oreilly has reviewed this note and agrees with this plan of care. This note was dictated using voice recognition software and make contain errors or omissions. [facility] History I have reviewed the patient's past medical history: Yes Medical History: Reports:: Hyperlipidemia Denies:: Cancer, Diabetes Mellitus Type 1, Diabetes Mellitus Type 2, MRSA, Seizures *Have you ever received a pneumonia vaccine?: No *Have you received a flu vaccine this season?: No Other Medical History: Denies: Blood Transfusion Reaction Laterality Cases: Right: Arthroscopy Shoulder Other Surgeries
== END ==
PROVIDERS: Visit Provider Clinical Nurse Specialist Family Health
DX: M51.16 Intervertebral disc disorders with radiculopathy, lumbar region (principal); M46.1 Sacroiliitis, not elsewhere classified
CPT/HCPCS: 99212; G0463

== ENCOUNTER 2021-05-12 09:23 | Day surgery (SDC) | payer BC, SELFPAY ==
[2021-05-12 09:30] VITALS: BP 118/72; PULSE 67; RESP 18; TEMP 36.7; O2SAT 98; BMI 25.9
--- NOTE | 2021-05-12 09:59 | P.PCN_ITS ---
- Procedure Date: 05/12/21 Time: 09:59 Anesthesiologist:: Mary Barrera MD Complications:: None Pre-procedure Diagnosis:: bilateral sacroiliitis, chronic low back pain, chronic hip pain Post-procedure Diagnosis:: Same Indications for Procedure:: Patient is a very pleasant 61-year-old white male who presents today with chronic low back pain and chronic hip pain related to the above diagnosis. He has tried and failed conservative treatment including oral pain medication and physical therapy for greater than 6 weeks. He has previously undergone SI joint injections in the past and he states that he is got an 80 to 90% pain relief for about a few years. However he states that the pain has returned and is gradually worsened and he would like repeat injections. Of note, he has un dergone medial branch block injections as well as RFA in the past with appropriate pain relief. He recently has been complaining of chronic low back pain and hip pain radiating into his left buttock. The plan for today is for the patient to undergo repeat bilateral SI joint injections. Procedure Details:: B/L SI joint injection under fluoroscopy Informed consent was obtained and the risks and benefits of the procedure was explained to the patient. The patient was taken to the procedure room and placed prone on the procedure table. The patient was prepped using ChloraPrep. The skin and subcutaneous tissues overlying the SI joints were anesthetized using lidocaine. I placed a 22-gauge needle first in the left SI joint and second in the right SI joint. Needle placement was confirmed with dye. After this we injected 5 mL bupivacaine 0.25% and Depo-Medrol 40 mg into each SI joint. Patient tolerated the procedure well with no complications. Plan and Disposition:: We will follow-up with this patient in 2 weeks. Will reevaluate pain symptoms at that time. Discussed with the patient today that should pain persist, he may benefit from lumbar epidural steroid injections and possibly spinal cord stimulation in the future. Will reevaluate and assess at the next clinic visit.
[2021-05-12 10:04] VITALS: BP 120/74; PULSE 73; RESP 18; O2SAT 99
[2021-05-12 10:06] VITALS: BP 126/83; PULSE 67; RESP 18; O2SAT 99
[2021-05-12 10:20] VITALS: BP 127/79; PULSE 65; RESP 20; O2SAT 98
== END 2021-05-12 10:20 | disposition home or self-care (01) ==
LOC: SC.PAINP 09:25
PROVIDERS: PCP Nurse Practitioner Family; Visit Provider Anesthesiology Pain Medicine
DX: M46.1 Sacroiliitis, not elsewhere classified (principal); M54.5 Low back pain; M25.559 Pain in unspecified hip; G89.29 Other chronic pain
CPT/HCPCS: 27096; G0260; J1040; Q9966

== ENCOUNTER → 2021-06-15 08:35 | Outpatient (POV) | payer BC, SELFPAY ==
[2021-06-15 08:48] VITALS: BP 125/74; PULSE 63; RESP 18; O2SAT 96; BMI 26.6
--- NOTE | 2021-06-15 10:13 | HMH.PAINSOAP ---
[facility] Pain Management SOAP Note Subjective:: Patient is a pleasant 61-year-old white male who presents today for follow-up after bilateral SI joint injections. The patient is being treated for chronic sacroiliitis as well as chronic low back pain and chronic hip pain. Patient says that he got about 90% relief for 1 week. He reports his pain to be in the left low back area at this time radiating into left buttock. He is not having any hip pain at this time. He is having pain with standing or walking. He has tried chiropractic therapy along with TENS unit and acupuncture. He did get significant relief initially with these therapies, however, over cesar these therapies stopped working. Is tried physical therapy for more than 6 weeks in the past along with continued home stretching. He is also tried anti-inflammatories Patient has had more than 2 rounds of injections with significant relief, however, only up to 2 weeks. Today, his pain is a 4 out of 10. Review of Systems General: No recent weight changes, no fever, no sleep disturbances Respiratory: No cough, no shortness of air, no recurring pulmonary infections Cardiovascular/peripheral vascular: No chest pain, no palpitations, no edema, no shortness of breath Gastrointestinal: No new onset incontinence, normal bowel movements reported Genitourinary: No new onset incontinence Musculoskeletal: Left low back pain with radiation into left buttock Psychiatric: [Normal mood/affect] Neurological: [Denies weakness in extremities], [denies balance issues] Objective:: Physical exam General: Alert and oriented x3, no acute distress, pleasant and cooperative, [on room air] Lungs: Respirations even and unlabored, symmetrical chest expansion Eyes: PERRL Musculoskeletal: Flexion and extension of [] lumbar [spine] somewhat guarded secondary to pain, strength in upper and lower extremities [5/5], [antalgic gait noted], positive Rodolfo's test, positive compression test, positive distraction test Neurological: Speech clear, [goods layer equal], no gross sensory deficit Assessment:: Sacroiliitis left Plan:: We will schedule patient for an MRI of his pelvis. We will plan to see him back after the MRI for reevaluation of symptoms and discuss a further plan of care. Given his symptoms along with positive Rodolfo's, compression, distraction test, he would likely benefit from the SI stabilization procedure to the left side. He has had great relief with the injections, however, only for 2 weeks. He is continue with home stretching and anti-inflammatories. We will see him back after the MRI to discuss further plan of care. He was given as a SI corner lock information today. He is very interested in the procedure. [facility] History I have reviewed the patient's past medical history: Yes Medical History: Reports:: Hyperlipidemia Denies:: Cancer, Diabetes Mellitus Type 1, Diabetes Mellitus Type 2, MRSA, Seizures *Have you ever received a pneumonia vaccine?: Yes *Have you received a flu vaccine this season?: No Other Medical History: Denies: Blood Transfusion Reaction Laterality Cases: Right: Arthroscopy Shoulder Other Surgeries: Yes: Appendectomy, Hernia Repair Amputation: No Fractures: No - *Social History Smoking Status: Current every day smoker Tobacco Type: cigarettes # Packs/Day (cigarettes): 1 Alcohol Intake: never Alcohol Intake Frequency:: holidays/special occasions only *Occupational Status:: employed Housing: house Household Members: spouse *Travel in the last 8 weeks: None Family Hx:: Unable to obtain
== END ==
PROVIDERS: PCP Nurse Practitioner Family; Visit Provider Clinical Nurse Specialist Family Health
DX: M46.1 Sacroiliitis, not elsewhere classified (principal)
CPT/HCPCS: 99212; G0463

== ENCOUNTER → 2021-06-20 14:57 | Outpatient (CLI) | payer BC, SELFPAY ==
--- NOTE | 2021-06-20 15:05 | XR_ITS ---
PROCEDURE: XR SACROILIAC JOINT BI MIN 3V CLINICAL INDICATION: SACROILITIS COMPARISON: No exams were available for comparison FINDINGS: No fracture or dislocation. No lytic or blastic change. There is normal mineralization. The joint spaces are well-preserved. No significant degenerative/arthritic changes. No erosive changes evident. Other findings:No evidence of sacroiliac sclerosis. There is mild vascular calcification. IMPRESSION: Negative SI joints Dictated by: Mulugeta Cuevas MD 06/20/2021 15:24 Mulugeta Cuevas MD in [place] 06/20/2021 15:24
== END ==
PROVIDERS: PCP Nurse Practitioner Family; Visit Provider Clinical Nurse Specialist Family Health
DX: M53.3 Sacrococcygeal disorders, not elsewhere classified (principal)
CPT/HCPCS: 72202

== ENCOUNTER → 2021-06-26 14:59 | Outpatient (CLI) | payer BC, SELFPAY ==
--- NOTE | 2021-06-26 15:03 | MR_ITS ---
PROCEDURE: MR PELVIS WO CON CLINICAL INDICATION: SACROILITIS COMPARISON: MR MR LUMBAR SPINE WO CON from 07/28/2020 CR XR SACROILIAC JOINT BI MIN 3V from 06/20/2021 TECHNIQUE: Routine multiplanar multi echo sequences are performed without gadolinium enhancement. FINDINGS: The the SI joints have an unremarkable appearance. No erosive changes, edema, or sacral fractures apparent. There is some minimal spurring of the SI joints anteriorly suggesting minimal osteoarthritic change. No obvious pelvic mass or abnormal fluid collection. Small left inguinal hernia containing fat noted. There is degenerative disc disease at L3-L4 with bulging disc and small left paracentral disc protrusion suspected with left-sided lateral recess and foraminal narrowing. Dedicated MRI of the lumbar spine may better evaluate. IMPRESSION: Minimal osteoarthritic change of the SI joints. No erosive change or fracture apparent. There is degenerative disc disease at L3-L4 with bulging disc and small left paracentral disc protrusion suspected with left-sided lateral recess and foraminal narrowing. Dedicated MRI of the lumbar spine may better evaluate Dictated by: Mulugeta Cuevas MD 06/27/2021 05:46 Mulugeta Cuevas MD in [place] 06/27/2021 05:46
== END ==
PROVIDERS: PCP Nurse Practitioner Family; Visit Provider Clinical Nurse Specialist Family Health
DX: M46.1 Sacroiliitis, not elsewhere classified (principal)
CPT/HCPCS: 72195

== ENCOUNTER → 2021-07-03 08:59 | Outpatient (POV) | payer BC, SELFPAY ==
[2021-07-03 09:00] VITALS: BP 141/83; PULSE 73; RESP 18; O2SAT 95; BMI 26.6
--- NOTE | 2021-07-03 12:32 | HMH.PAINSOAP ---
[facility] Pain Management SOAP Note Subjective:: Patient is is a 61-year-old white male who presents today for follow-up. Patient recently underwent MRI pelvis. Patient is being treated in the clinic for chronic sacroiliitis. Patient is complaining of pain to his low back area that is radiating into his lower extremity. The pain is worse when he is sitting. Patient got excellent relief for 1 week up to 80% to 90% relief with the injection. Unfortunately, the patient's pain returned. Patient's pain is a 5 out of 10 today. He says following the injection he was able to sit longer and was able to drive without significant pain. He says 3 days following the injection, however, his pain was worse. He is currently taking Tylenol arthritis and using ice regularly for relief. He says he spends much of the day sitting on ice to get relief. He has discussed corner lock in the past. Patient did request imaging before proceeding with the procedure. He has had multiple SI injections gotten excellent relief with these injections. He does not get long-term relief. He generally gets up to 1 week of relief. He does continue with home stretching. 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 He is very mobile and active. He says by the end of the day his pain is significant. He has tried chiropractic therapy and does get short-term relief but his pain does return. Review of Systems General: No recent weight changes, no fever, no sleep disturbances Respiratory: No cough, no shortness of air, no recurring pulmonary infections Cardiovascular/peripheral vascular: No chest pain, no palpitations, no edema, no shortness of breath Gastrointestinal: No new onset incontinence, normal bowel movements reported Genitourinary: No new onset incontinence Musculoskeletal: Low back pain with radiation into lower extremities, bilateral hip pain worse with sitting Psychiatric: [Normal mood/affect] Neurological: [Denies weakness in extremities], [denies balance issues] Objective:: Physical exam General: Alert and oriented x3, no acute distress, pleasant and cooperative, [on room air] Lungs: Respirations even and unlabored, symmetrical chest expansion Eyes: PERRL Musculoskeletal: Flexion and extension of [] lumbar [spine] somewhat guarded secondary to pain, strength in upper and lower extremities [5/5], [antalgic gait noted], positive Rodolfo's test, positive distraction test, positive compression test Neurological: Speech clear, [superintendent power equal], no gross sensory deficit Assessment:: Low back pain chronic, sacroiliitis bilateral Plan:: Patient continues to have significant pain following the injections. He has tried physical therapy for greater than 6 weeks and continues patient. He has also tried lumbar epidural steroid injections which did not give him the relief that he received with the SI injections. He gets excellent relief with the injections, however, only lasting at a week. He reports his pain to be worse when he is sitting. He is using ice regularly as well as Tylenol arthritis. He has discussed the procedure with his . His pain is worse at this time to the left SI joint. He is tender to palpation. He has a positive Rodolfo's, compression, distraction test. We will schedule the patient for a left corner lock procedure. We will plan to see him back afterwards for reevaluation of symptoms. He was given educational information today regarding the procedure. His was contacted via telephone to discuss the procedure as well. They are in agreement to proceed with the stabilization procedure. He has had bilateral SI injections which gave him significant relief. 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 We will plan to follow-up with him after his stabilization for reevaluatio
== END ==
PROVIDERS: Visit Provider Clinical Nurse Specialist Family Health
DX: M54.5 Low back pain (principal); M46.1 Sacroiliitis, not elsewhere classified; G89.29 Other chronic pain
CPT/HCPCS: 99212; G0463

== ENCOUNTER → 2021-07-20 15:55 | Outpatient (CLI) | payer BC, SELFPAY ==
--- NOTE | 2021-07-20 15:59 | XR_ITS ---
PROCEDURE: XR HIP RT 2-3V W/PELVIS XR HIP LT 2-3V W/PELVIS CLINICAL INDICATION: HIP/BACK PAIN COMPARISON: CR XR HIP LT 2-3V W/PELVIS from 07/20/2021 FINDINGS: No fracture or dislocation is evident. No significant degenerative change. No lytic or blastic change. Unremarkable soft tissues. IMPRESSION: Negative bilateral hips Dictated by: Mulugeta Cuevas MD 07/20/2021 16:27 Mulugeta Cuevas MD in [place] 07/20/2021 16:27
== END ==
PROVIDERS: PCP Nurse Practitioner Family; Visit Provider Clinical Nurse Specialist Family Health
DX: M25.552 Pain in left hip (principal); M25.551 Pain in right hip; M54.5 Low back pain
CPT/HCPCS: 73502

== ENCOUNTER → 2021-08-22 09:33 | Outpatient (POV) | payer BC, SELFPAY ==
[2021-08-22 09:48] VITALS: BP 135/72; PULSE 72; RESP 18; O2SAT 98; BMI 25.8
--- NOTE | 2021-08-22 10:06 | HMH.PAINSOAP ---
[facility] Pain Management SOAP Note Subjective:: Patient is a 61-year-old white male who presents today for follow-up. Patient is being treated for chronic sacroiliitis. He did undergo injective therapy to his SI joints and got between 80 to 90% relief for a week. Unfortunately the pain does return following injections. He has had more than 1 round of SI injections and continues to get the same amount of relief with each injections. He has pain is worse with standing and walking. He says following the injections he is able to stand longer and able to drive without significant pain. Sitting does seem to give him a great deal of pain. He has been taking Tylenol arthritis and uses ice regularly. Sitting on ice gives him significant relief. He does continue with home stretching has tried physical therapy for more than 6 weeks. He does undergo chiropractic therapy and only gets short-term relief. He has had imaging of bilateral hips as well as bilateral SI joints. Patient's pain is worse in the left SI joint at this time. Initially, the patient was denied the procedure due to lack of imaging of hips. After imaging was obtained, we did schedule the patient for the procedure. Patient was informed that his insurance company that we were not in network. After clarification, the insurance has approved the procedure for the patient. The patient has been approved until September 11. Patient is concerned he will not be able to undergo the procedure before then due to his work schedule. He is continuing to try to work despite pain. He does rate his pain a 7 or an 8 out of 10. Review of Systems General: No recent weight changes, no fever, no sleep disturbances Respiratory: No cough, no shortness of air, no recurring pulmonary infections Cardiovascular/peripheral vascular: No chest pain, no palpitations, no edema, no shortness of breath Gastrointestinal: No new onset incontinence, normal bowel movements reported Genitourinary: No new onset incontinence Musculoskeletal: Low back pain with radiation into bilateral buttock, hips, groin and legs Psychiatric: [Normal mood/affect] Neurological: [Denies weakness in extremities], [denies balance issues] Objective:: Physical exam General: Alert and oriented x3, no acute distress, pleasant and cooperative Lungs: Respirations even and unlabored, symmetrical chest expansion Eyes: PERRL Musculoskeletal: Flexion and extension of lumbar [spine] somewhat guarded secondary to pain, [antalgic gait noted], positive Rodolfo's test, positive compression test, positive distraction test, positive test Neurological: Speech clear, no gross sensory deficit Assessment:: Sacroiliitis left Plan:: Patient is a 61-year-old male who is being treated for sacroiliitis chronic bilaterally. Patient's pain is worse on the left side. He got between 80 to 90% relief with the SI injections for only 1 week. He continues with home stretching as well as Tylenol arthritis medication and has undergone physical therapy for more than 6 weeks. The patient has had chiropractic therapy as well. He uses ice therapy daily. The patient has been approved for the left SI corner lock procedure. We will schedule him for the procedure. According to the patient's approval letter he is approved until September 11. Dependent upon the patient's work schedule we may need to reapply for approval for the procedure after this date due to the patient's limitations with work. The patient is not diabetic and is not on anticoagulation therapy. Risks and benefits of the procedure have been explained to the patient. Patient would like to proceed with the procedure. Patient has been instructed to contact the clinic with any concerns before the next appointment. Dr. Oreilly has reviewed this note and agrees with this plan of care. This note was dictated using voice recognition software and make contain errors or omissions. [facility] History I have reviewed
== END ==
PROVIDERS: Visit Provider Clinical Nurse Specialist Family Health
DX: M46.1 Sacroiliitis, not elsewhere classified (principal)
CPT/HCPCS: 99212; G0463

== ENCOUNTER → 2021-09-13 08:00 | Outpatient (CLI) | payer BC, SELFPAY ==
[2021-09-13 08:28] LABS: Basophils # 0.1 K/mm3 (0-0.2); Basophils % 1.2 % (0.1-2.0); Eosinophils # 0.3 K/mm3 (0.0-0.4); Eosinophils % 5.6 % (0.1-12.0); Hematocrit 50.4 % (42.0-52.0); Hemoglobin 16.1 g/dL (14.1-18.0); Lymphocytes # 1.6 K/mm3 (0.7-4.5); Lymphocytes % 27.8 % (10-50); Mean Corpuscular Hemoglobin 31.7 pg (27.0-31.2); Mean Platelet Volume 8.3 fl (7.4-10.4); Monocytes # 0.5 K/mm3 (0.1-1.0); Monocytes % 8.2 % (1.7-9.3); Neutrophils # 3.4 K/mm3 (1.8-7.8); Neutrophils % 57.2 % (37.0-80.0); Platelet Count 314 K/mm3 (142-424); Red Blood Count 5.09 M/mm3 (4.60-6.20); Red Cell Distribution Width 13.8 % (11.5-17.5); White Blood Count 5.9 K/mm3 (4.8-10.8)
[2021-09-13 09:32] LABS: Anion Gap 10.7 mEq/L (5-15); Blood Urea Nitrogen 12 mg/dl (9-20); Calcium 9.3 mg/dl (8.4-10.2); Carbon Dioxide 30 mmol/L (22.0-30.0); Chloride 105 mmol/L (98-107); Estimated Glomerular Filt Rate 86 ml/min (>60); GFR (African American) 103 ML/MIN (>60); Glucose 102 mg/dl (74-100); Potassium 4.7 mmoL/L (3.5-5.1); Sodium 141 mmol/L (136-145)
== END ==
PROVIDERS: Visit Provider Anesthesiology
DX: Z01.812 Encounter for preprocedural laboratory examination (principal); Z11.52 Encounter for screening for COVID-19; M53.3 Sacrococcygeal disorders, not elsewhere classified
CPT/HCPCS: 36415; 80048; 85025; C9803; U0003; U0005

== ENCOUNTER 2021-09-15 08:12 | Day surgery (SDC) | payer BC, SELFPAY ==
[2021-09-11 13:15] VITALS: BMI 27.1
[2021-09-15] VITALS (9 sets, daily range): BP systolic 114–139; BP diastolic 55–76; PULSE 62–76; RESP 12–18; TEMP 36.1–36.8; O2SAT 92–100
--- NOTE | 2021-09-15 10:09 | P.OP_ITS ---
Date of procedure: 09/15/21 Pre-op Diagnosis:: Sacroiliitis Post-op Diagnosis:: Same Procedure performed:: Left SI joint stabilization Surgeon:: Scar Oreilly MD PLASTIC FRAME INSERTER:: Antonio Wright Anesthesia: GETA Estimated blood loss (mL): 10 Clinical Note:: Patient is a pleasant 61-year-old white male who we are treating for chronic sacroiliitis. He gets 80 to 90% relief after injections however this is not long-lasting. It only last for a few weeks. He presents for left SI joint stabilization today. Operative findings:: None Operative note:: Informed consent was obtained and the risk and benefits of the procedure was explained to the patient. Patient was taken to the operating room placed prone on the procedure table. Patient was prepped and draped in sterile fashion. A lateral view of the sacrum with C-arm was taken to make sure it was out of anteversion. We then did an oblique view of the left sacroiliac joint. We lined up the anterior and posterior sides of the joint to achieve a [place] . A line was drawn on the skin with the SI joint. The superior and inferior aspect of the joint were anesthetized using lidocaine. The superior and inferior aspect of the joint were marked off. 1 cm medial and 1 cm superiorly into the upper quadrant and 1 cm medial and 1 cm distal a 1 1/2 cm longitudinal incisions were made through the skin and subcutaneous tissues. Guidepins were then placed superior and inferior at a 90 degree angle to each other under C-arm guidance through the incision was made into the superior third and inferior third of the SI joint. Lateral C-arm view was then taken to check the depth of the pins into the SI joint. On the lateral view the joint finder was placed over the guidepin into the appropriate position. The working cannula retractor was then placed over the joint finder into the SI joint into the appropriate position and depth. The joint finder and guidepin were removed. The SI joint was drilled to remove cartilage and to get into the subchondral bone of the sacrum and ilium. The broach was then used to prepare a triangular groove into both the sacrum and ilium for insertion of stabilization grafts. A collagen spine was then placed into the prepared space and the stabilization graft was placed. This was done both superiorly inferiorly into the SI joint. The cannulated retractor was removed. The incisions were then closed with 2-0 Vicryl followed by 4-0 nylon. Dressings were placed and the patient was taken recovery in stable condition. Patient tolerated the procedure well with no complications. We will give him some [place] 5 mg 1 tablet every 4 to 6 hours for postoperative pain. I will give him 20 tablets. We will not give him any antibiotics as he is allergic to sulfa and penicillins and antibiotics usually cause him significant side effects and GI distress. We will continue to monitor him and give antibiotics if needed. We will follow-up with him in 1 week for wound check and in 2 weeks for suture removal. If he has any problems or questions he is to call us back in the pain clinic. Condition: stable Disposition: PACU Complications:: None
--- NOTE | 2021-09-15 11:06 | P.PN_ITS ---
[facility] Anesthesia Checklist - Patient Identification Patient Identification: Arm Band - Structural Data Admitted From: Home Planned Operative Procedure/s: Left sacroiliac joint stabalization under fluoroscopy Consent for Planned Operative Procedure(s) Verified: Yes Verified Documents: Surgical Consent, History and Physical - NPO Status Verified Time NPO: 00:00 - Additional verifications Anesthesia Reactions: Yes (NAUSEA / VOMITING) Hx Blood Transfusions: No Blood Transfusion Reaction: No - Airway Assessment C-Spine Mobility Assessed: Yes (mp2) TMJ Mobility Assessed: Yes Dentition: Poor Dentition - Neurological Assessment Level of Consciousness: Awake, Alert - Anesthesia Plan Anesthesia Risk discussed: Yes Anesthesia Plan: Verified ASA Class: II Anesthesia Type: General [facility] History Medical History: Reports:: Gastroesophageal Reflux Disease(GERD), Hyperlipidemia Denies:: Cancer, Diabetes Mellitus Type 1, Diabetes Mellitus Type 2, Internal Pacemaker, MRSA, Seizures *Have you ever received a pneumonia vaccine?: No *Have you received a flu vaccine this season?: No Other Medical History: Denies: Blood Transfusion Reaction Anesthesia experience/problems:: nac Laterality Cases: Right: Arthroscopy Shoulder Other Surgeries: Yes: Appendectomy, Hernia Repair. No: Pacemaker Amputation: No Fractures: No - *Social History Last grade of school completed: High school graduate Smoking Status: Current every day smoker Tobacco Type: cigarettes # Packs/Day (cigarettes): 1 Alcohol Intake: current Alcohol Intake Frequency:: holidays/special occasions only Substance Use Type: denies use *Occupational Status:: employed Housing: house Household Members: spouse *Travel in the last 8 weeks: None Family Hx:: Cancer
--- NOTE | 2021-09-15 11:48 | HMH.ANESI ---
[facility] Anesthesia Record Part I Intake, IV Amount: 1,000 Estimated blood loss (mL): 0 Urine output (mL): 0 Blood Pressure: 139/75 SaO2: 96 Pulse Rate: 76 Respiratory Rate: 12 Temperature: 97.0 F Patient is:: Awake, Stable Stable to PACU at:: 11:45
--- NOTE | 2021-09-15 12:13 | SUR.PHASEI ---
1204- report given to jennifer colon in post op at this time.
--- NOTE | 2021-09-18 07:10 | HMH.ANESII ---
[facility] Anesthesia Record Part II Discharge Time: 12:06 Destination: Home PACU nurse assessment reviewed?: Yes Patient Condition:: Good Anesthesia Complications:: None Swallowing reflex intact?: Yes Cyanosis?: No Blood Pressure: 125/55 Pulse Rate: 66 Temperature: 98.3 F Mental Status: Alert & Oriented Pain level:: 0 Nausea and/or vomitting:: None Intake, IV Amount: 0
[2021-09-18 07:12] VITALS: BP 125/55; PULSE 66; TEMP 36.8
== END 2021-09-15 12:40 | disposition home or self-care (01) ==
LOC: OR 08:14
PROVIDERS: PCP Nurse Practitioner Family; Visit Provider Anesthesiology
PROC: (CPT 27279; principal; 2021-09-15 09:45)
DX: M46.1 Sacroiliitis, not elsewhere classified (principal); Z88.1 Allergy status to other antibiotic agents; Z88.2 Allergy status to sulfonamides; Z88.8 Allergy status to other drugs, medicaments and biological substances; Z79.899 Other long term (current) drug therapy; K21.9 Gastro-esophageal reflux disease without esophagitis
CPT/HCPCS: 27279; 96374; C1713; J2405; J2710

== ENCOUNTER → 2021-10-02 10:13 | Outpatient (POV) | payer BC, SELFPAY ==
[2021-10-02 10:23] VITALS: BP 129/77; PULSE 85; RESP 20; TEMP 37.1; O2SAT 96; BMI 26.6
--- NOTE | 2021-10-02 10:37 | P.CONS_ITS ---
[facility] Pain Management SOAP Note Subjective:: Patient is a 61-year-old white male who is following up today after left SI joint stabilization procedure. Patient says he is doing very well since the procedure. He rates his pain a 1 out of 10. He is much more functional and active since having the procedure. He does report to be having soreness to his left hip, but says he is able to sit for longer periods of time and has less pain. Review of Systems General: No recent weight changes, no fever, no sleep disturbances Respiratory: No cough, no shortness of air, no recurring pulmonary infections Cardiovascular/peripheral vascular: No chest pain, no palpitations, no edema, no shortness of breath Gastrointestinal: No new onset incontinence, normal bowel movements reported Genitourinary: No new onset incontinence Musculoskeletal: Left hip pain Psychiatric: [Normal mood/affect] Neurological: [Denies weakness in extremities], [denies balance issues] Objective:: Physical exam General: Alert and oriented x3, no acute distress, pleasant and cooperative Lungs: Respirations even and unlabored, symmetrical chest expansion Eyes: PERRL Musculoskeletal: Flexion and extension of left hip somewhat guarded secondary to pain, normal gait noted Neurological: Speech clear, no gross sensory deficit Assessment:: Sacroiliitis, low back pain Plan:: Patient is doing well overall since his procedure. We will plan to follow-up with him in 2 weeks. He has been instructed to contact the clinic if he has not concerns for his next ointment. His incisions are well approximated, no redness, no drainage, no edema noted to site. Patient has been instructed to contact the clinic with any concerns before the next appointment. Dr. Oreilly has reviewed this note and agrees with this plan of care. This note was dictated using voice recognition software and make contain errors or omissions. [facility] History I have reviewed the patient's past medical history: Yes Medical History: Reports:: Gastroesophageal Reflux Disease(GERD), Hyperlipidemia Denies:: Cancer, Diabetes Mellitus Type 1, Diabetes Mellitus Type 2, Internal Pacemaker, MRSA, Seizures *Have you ever received a pneumonia vaccine?: No *Have you received a flu vaccine this season?: No Other Medical History: Denies: Blood Transfusion Reaction Laterality Cases: Right: Arthroscopy Shoulder Other Surgeries: Yes: Appendectomy, Hernia Repair. No: Pacemaker Amputation: No Fractures: No - *Social History Smoking Status: Current every day smoker Tobacco Type: cigarettes # Packs/Day (cigarettes): 1 Alcohol Intake: current Alcohol Intake Frequency:: holidays/special occasions only Substance Use Type: denies use *Occupational Status:: employed Housing: house Household Members: spouse *Travel in the last 8 weeks: None Family Hx:: Cancer
== END ==
PROVIDERS: Visit Provider Clinical Nurse Specialist Family Health
DX: M46.1 Sacroiliitis, not elsewhere classified (principal); M54.50 Low back pain, unspecified
CPT/HCPCS: 99212; G0463

== ENCOUNTER → 2021-10-30 10:01 | Outpatient (POV) | payer BC, SELFPAY ==
[2021-10-30 10:18] VITALS: BP 131/80; PULSE 80; RESP 18; O2SAT 100; BMI 27.2
--- NOTE | 2021-10-30 10:31 | HMH.PAINSOAP ---
[facility] Pain Management SOAP Note Subjective:: Patient is a pleasant 59-year-old male who comes in today for a follow-up after a left SI joint stabilization procedure in September 2021. Patient says that he is doing well after the procedure. He says the pain on his left hip has improved a lot. Today, patient says that he has been having numbness to his left leg when he sits down to use the bathroom. This does resolves once he stands up and walks around. He says that the numbness is new and was not there before the procedure. Patient also says that he tried lifting a 20lb object couple of weeks ago that aggravated his left hip. He also wants to know today if he is going to be able to come back to work in November 06. Patient is currently not on any oral medications. His Jaden is [phone] with an active morphine equivalent of 0. General: No recent weight changes, no fever, no sleep disturbances Respiratory: No cough, no shortness of air, no recurring pulmonary infections Cardiovascular/peripheral vascular: No chest pain, no palpitations, no edema, no shortness of breath Gastrointestinal: No new onset incontinence, normal bowel movements reported Genitourinary: No new onset incontinence Musculoskeletal: improving left hip pain Psychiatric: [Normal mood/affect] Neurological: positional numbness to left leg Objective:: General: Alert and oriented x3, no acute distress, pleasant and cooperative, [on room air] Lungs: Respirations even and unlabored, symmetrical chest expansion Eyes: PERRL Musculoskeletal: improving left hip pain Skin: Surgical wound is approximated well and healing. No drainage, redness, and swelling Neurological: Speech clear, no gross sensory deficit Assessment:: Sacroiliitis Plan:: We will start the patient on prednisone 20 mg for 5 days to see if the inflammation in his left hip improves. Patient is okay to go back to work on November 06. We will follow-up with the patient in 1 month to see how he is doing after he goes back to work. Patient has been instructed to contact the clinic with any concerns before the next appointment. This note was dictated using voice recognition software and make contain errors or omissions. [facility] History Medical History: Reports:: Gastroesophageal Reflux Disease(GERD), Hyperlipidemia Denies:: Cancer, Diabetes Mellitus Type 1, Diabetes Mellitus Type 2, Internal Pacemaker, MRSA, Seizures *Have you ever received a pneumonia vaccine?: No *Have you received a flu vaccine this season?: No Other Medical History: Denies: Blood Transfusion Reaction Laterality Cases: Right: Arthroscopy Shoulder Other Surgeries: Yes: Appendectomy, Hernia Repair. No: Pacemaker Amputation: No Fractures: No - *Social History Smoking Status: Current every day smoker Tobacco Type: cigarettes # Packs/Day (cigarettes): 1 Alcohol Intake: current Alcohol Intake Frequency:: holidays/special occasions only Substance Use Type: denies use *Occupational Status:: unemployed Housing: house Household Members: spouse *Travel in the last 8 weeks: None Family Hx:: Cancer
== END ==
PROVIDERS: Visit Provider Family Medicine
DX: M46.1 Sacroiliitis, not elsewhere classified (principal)
CPT/HCPCS: 99212; G0463

== ENCOUNTER → 2021-11-30 09:41 | Outpatient (POV) | payer BC, SELFPAY ==
[2021-11-30 10:05] VITALS: BP 143/79; PULSE 86; RESP 18; O2SAT 96; BMI 27.1
--- NOTE | 2021-11-30 10:12 | HMH.PAINSOAP ---
[facility] Pain Management SOAP Note Subjective:: Patient is a 61 year old white male who presents today for follow up after Left SI stabilization procedure. Patient has a says that he did excellent following the procedure. He is still having some occasional pain with squatting to the floor. He says he is using compounding cream which gives him significant relief. He has had RFA in November 2020 which is given him up to a year of relief. He does feel back pain is starting to return with extension of voice. At this time, however, his pain is a 2 out of 10 and he does not want to proceed with any further injective therapy. He does need a refill on compounding cream today. Review of Systems General: No recent weight changes, no fever, no sleep disturbances Respiratory: No cough, no shortness of air, no recurring pulmonary infections Cardiovascular/peripheral vascular: No chest pain, no palpitations, no edema, no shortness of breath Gastrointestinal: No new onset incontinence, normal bowel movements reported Genitourinary: No new onset incontinence Musculoskeletal: Intermittent low back pain with bending Psychiatric: [Normal mood/affect] Neurological: [Denies weakness in extremities], [denies balance issues] Objective:: Physical exam General: Alert and oriented x3, no acute distress, pleasant and cooperative Lungs: Respirations even and unlabored, symmetrical chest expansion Eyes: PERRL Musculoskeletal: Flexion and extension of lumbar [spine] somewhat guarded secondary to pain, [antalgic gait noted], positive Kemps test Neurological: Speech clear, no gross sensory deficit Assessment:: Degenerative disc disease lumbar spine with lumbar facet arthropathy and lumbar spondylosis Plan:: We will plan to follow-up with the patient as needed. If the pain worsens to his low back area with bending forward, we will plan for repeat RFA. He did have this procedure performed in November 2020. We will reorder the compounding cream to apply topically to the patient's left low back area. Risks and benefits of the medication have been explained in detail to the patient. If side effects do present with the medication, patient has been advised to stop the medication immediately and call the clinic. The patient has been advised to consult with his/her primary care provider and pharmacist regarding drug-drug interaction of medications currently prescribed. Patient has been instructed to contact the clinic with any concerns before the next appointment. Dr. Oreilly has reviewed this note and agrees with this plan of care. This note was dictated using voice recognition software and make contain errors or omissions. [facility] History I have reviewed the patient's past medical history: Yes Medical History: Reports:: Gastroesophageal Reflux Disease(GERD), Hyperlipidemia Denies:: Cancer, Diabetes Mellitus Type 1, Diabetes Mellitus Type 2, Internal Pacemaker, MRSA, Seizures *Have you ever received a pneumonia vaccine?: No *Have you received a flu vaccine this season?: No Other Medical History: Denies: Blood Transfusion Reaction Laterality Cases: Right: Arthroscopy Shoulder Other Surgeries: Yes: Appendectomy, Hernia Repair. No: Pacemaker Amputation: No Fractures: No - *Social History Smoking Status: Current every day smoker Tobacco Type: cigarettes # Packs/Day (cigarettes): 1 Alcohol Intake: current Alcohol Intake Frequency:: holidays/special occasions only Substance Use Type: denies use *Occupational Status:: unemployed Housing: house Household Members: spouse *Travel in the last 8 weeks: None Family Hx:: Cancer
== END ==
PROVIDERS: Visit Provider Clinical Nurse Specialist Family Health
DX: M51.36 Other intervertebral disc degeneration, lumbar region (principal); M54.06 Panniculitis affecting regions of neck and back, lumbar region; M47.816 Spondylosis without myelopathy or radiculopathy, lumbar region
CPT/HCPCS: 99212; G0463

== ENCOUNTER → 2022-08-01 08:48 | Outpatient (POV) | payer BC, SELFPAY ==
--- NOTE | 2022-08-01 08:57 | EXP.PAIN.SOA ---
[facility] Pain Management SOAP Note Subjective:: Patient is a pleasant 62-year-old male who presents today for follow-up. We are currently treating the patient for degenerative disc disease of lumbar spine with lumbar facet arthropathy and lumbar spondylosis, chronic sacroiliitis. Today the patient rates his pain a 10 out of 10. He states the pain is all in his low back on the left side that radiates into his left hip and groin and goes down his left leg. In the past he has done multiple SI injections, SI RFA and a left SI stabilization procedure. Following his left SI stabilization in September 2021 the patient had 100% relief and has not had any issues since. Patient states about 1 week ago his SI pain flared back up on the left side. He denies any specific trauma or injury. He states he was in an awkward position and moving around when the pain first began. Patient describes this as a aching, throbbing sensation that is worse with increased activity. Patient does state that this is the same pain that he has had in the past. Patient states that the pain has always been on his left side about 95% of the time. He has been using exok-ozn-kaufaje Tylenol along with heat and ice to help relieve some of his symptoms. He also uses a compounding cream daily with significant improvement. He is requesting a refill of this medication at today's visit. Patient has been to physical therapy over 1 year ago and stated this did not give any improvement of his symptoms. He stated this did help some of his back pain and he continues to do at home stretching and exercises every day however these have not been helpful the last week. Patient is interested in repeating his previous ablation at today's visit. His Jaden is [id number]. It has been reviewed and appropriate. Review of Systems: General: No recent weight changes, no fever, no sleep disturbances Respiratory: No cough, no shortness of air, no recurring pulmonary infections Cardiovascular/peripheral vascular: No chest pain, no palpitations, no edema, no shortness of breath Gastrointestinal: No new onset incontinence, normal bowel movements reported Genitourinary: No new onset incontinence Musculoskeletal: [Low back pain, left hip/groin pain, left leg pain] Psychiatric: [Normal mood/affect] Neurological: [Denies weakness in extremities], [denies balance issues] Objective:: Physical Exam: General: Alert and oriented x3, no acute distress, pleasant and cooperative Lungs: Respirations even and unlabored, symmetrical chest expansion Eyes: PERRL Musculoskeletal: Flexion and extension of [lumbar] [spine] somewhat guarded secondary to pain, [antalgic gait noted]. Extreme point tenderness along left SI and positive left Rodolfo's, Steve's, Gaenslen's, compression and distraction exam Neurological: Speech clear, no gross sensory deficit Assessment:: Degenerative disc disease lumbar spine with lumbar facet arthropathy and lumbar spondylosis, chronic sacroiliitis Plan:: Patient is experiencing significant pain in his low back that radiates into his left leg, hip and groin. Patient has limited range of motion of his lumbar spine and extreme point tenderness along his left SI. Patient also had a positive left Rodolfo's, Steve's, Gaenslen's, compression and distraction exam during today's visit. Patient has tried and failed other conservative therapies such as oral medications, injective therapy, heat and ice, topical medications, physical therapy and at home stretching and exercises for longer than 6 weeks. Previously the patient had significant improvement of his symptoms following an ablation of his SI joint. I have discussed with the patient regarding repeating his left SI RFA. Risk and benefits were discussed with the patient. He would like to proceed forward with this procedure. We will submit today for a left SI RFA and contact the patient once we have insurance approval. Patient has been instructed to contact the clinic with a
[2022-08-01 08:58] VITALS: BP 131/82; PULSE 68; RESP 18; TEMP 36.7; O2SAT 97; BMI 25.4
== END ==
PROVIDERS: PCP Nurse Practitioner Family; Visit Provider Nurse Practitioner Family
DX: M51.36 Other intervertebral disc degeneration, lumbar region (principal); M47.816 Spondylosis without myelopathy or radiculopathy, lumbar region; M46.1 Sacroiliitis, not elsewhere classified
CPT/HCPCS: 99212; G0463

== ENCOUNTER → 2022-08-13 13:34 | Outpatient (POV) | payer BC, SELFPAY ==
[2022-08-13 13:47] VITALS: BP 135/84; PULSE 80; RESP 18; TEMP 36.8; O2SAT 95; BMI 24.2
--- NOTE | 2022-08-13 16:00 | EXP.PAIN.SOA ---
[facility] Pain Management SOAP Note Subjective:: Patient is a pleasant 62-year-old male who presents today for follow-up. Patient is current being treated for degenerative disease lumbar spine, lumbar facet arthropathy, lumbar spondylosis, sacroiliitis. We have done several different modalities for the patient's such as multiple SI injections, left SI joint stabilization procedure in September 2021 and lumbar RFA in November 2020. His left SI joint stabilization is a still providing some relief. We did 3 rounds of SI injections that provided significant but temporary relief. We did try to schedule the patient for a left SI RFA but this was denied by insurance. Today, patient is complaining of pain in his low back that radiates to his left lower extremity. He cannot tolerate any prolonged standing and walking. 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 His back does get better whenever he sits down. His last lumbar RFA L4-L5 and L5-S1 bilaterally was in November 24. He states that this provided significant relief of about 90 to 100%. He wants to know if he can get this repeated. For pain, he takes OTC medications and uses a compounding cream. His compounding cream is providing some relief to his low back pain. Jaden [id number] with an active morphine equivalent of 0. Review of Systems: General: No recent weight changes, no fever, no sleep disturbances Respiratory: No cough, no shortness of air, no recurring pulmonary infections Cardiovascular/peripheral vascular: No chest pain, no palpitations, no edema, no shortness of breath Gastrointestinal: No new onset incontinence, normal bowel movements reported Genitourinary: No new onset incontinence Musculoskeletal: Low back pain, left hip pain Psychiatric: [Normal mood/affect] Neurological: [Denies weakness in extremities], [denies balance issues] Objective:: Physical Exam: General: Alert and oriented x3, no acute distress, pleasant and cooperative Lungs: Respirations even and unlabored, symmetrical chest expansion Eyes: PERRL Musculoskeletal: Flexion and extension of lumbar [spine] somewhat guarded secondary to pain, [antalgic gait noted]; patient is tender to palpation around the lumbar facets especially at L4-L5 and L5-S1. Patient is also tender to palpation around the left SI joint. He does have a positive Kemps test. Neurological: Speech clear, no gross sensory deficit Assessment:: Degenerative disc disease lumbar spine, lumbar facet arthropathy, lumbar spondylosis, chronic sacroiliitis Plan:: We will schedule the patient for a repeat lumbar RFA at bilateral L4-L5 and L5-S1. Patient is not on any blood thinners. Patient has tried and failed conservative therapies in the past such as oral medication, physical therapy, and home exercises for greater than 6 weeks. I will start this patient on tramadol 50 mg twice a day#28 tabs for breakthrough pain. Patient has been instructed to contact the clinic with any concerns before the next appointment. Dr. Oreilly has reviewed this note and agrees with this plan of care. This note was dictated using voice recognition software and make contain errors or omissions. PFSH PFSH Social History Smoking Status: Current every day smoker tobacco type: cigarettes packs per day: 1 second hand exposure: No alcohol intake: current substance use type: denies use current occupational status: employed Travel in the last 8 weeks: None household members: spouse housing: house current occupation: [employer] current occupational exposures/hazards: No caffeine: Yes
== END | disposition home or self-care (01) ==
PROVIDERS: Visit Provider Student in an Organized Health Care Education/Training Program
DX: M51.36 Other intervertebral disc degeneration, lumbar region (principal); M47.26 Other spondylosis with radiculopathy, lumbar region; M46.1 Sacroiliitis, not elsewhere classified; Z72.0 Tobacco use
CPT/HCPCS: 99212; G0463

== ENCOUNTER 2022-09-04 08:51 | Day surgery (SDC) | payer BC, SELFPAY ==
[2022-09-04 09:00] VITALS: BP 124/70; PULSE 66; RESP 18; TEMP 36.9; O2SAT 96; BMI 25.8
[2022-09-04 09:12] VITALS: BP 140/81; PULSE 69; RESP 20; O2SAT 98
[2022-09-04 09:25] VITALS: BP 115/70; PULSE 67; RESP 18; O2SAT 97
--- NOTE | 2022-09-04 09:50 | P.PCN_ITS ---
Procedure Date: 09/04/22 Time: 09:30 Anesthesiologist:: Herve Rosas CRNA Complications:: None Pre-procedure Diagnosis:: Degenerative disc disease lumbar spine multilevels. Lumbar radiculopathy. Lumbar spondylosis. Multilevel lumbar facet arthropathy Post-procedure Diagnosis:: Same. Indications for Procedure:: Very pleasant 62-year-old male that comes our clinic today for radiofrequency ablation L4-5, L5-S1 bilaterally. Patient describes low back pain as constant, dull, aching. Pain intensifies with sitting and/or standing for any length of time. Pain with flexion, extension left and right rotation. Patient has had lumbar medial branch blocks with successful results. Lasting 1 to 2 weeks. Patient has also had radiofrequency ablation in the past over a year ago with significant improvement. Procedure Details:: Lumbar RFA Procedure Details: Lumbar RFA Informed consent was obtained and the risk and benefits of the procedure was explained to the patient. Patient was placed prone on the procedure table. The patient was prepped and draped in sterile fashion. C-arm fluoroscopy was used to view the lumbar spine. The skin and subcutaneous tissues were anesthetized using lidocaine. I placed 20-gauge RF needles into the facet joints of L4-L5 and L5-S1 bilaterally. We underwent sensory stimulation. There is good sensory stimulation at 0.8 V. We underwent motor stimulation. There is no motor stimulation at 2 V. We then anesthetized these levels with lidocaine and Depo- Medrol. I used a total of 40 mg Depo-Medrol for all 3 levels. I then burned bilaterally L4-5 and L5-S1 for 2 minutes at 80 ?C. Patient tolerated the procedure well with no complication. Plan and Disposition:: We will follow-up with this patient in 2 weeks. We will reevaluate her symptoms at that time. Plan and Disposition:: Patient was discharged without incident
== END 2022-09-04 09:25 | disposition home or self-care (01) ==
LOC: SC.PAINP 08:53
PROVIDERS: PCP Nurse Practitioner Family; Visit Provider Nurse Anesthetist, Certified Registered
DX: M51.16 Intervertebral disc disorders with radiculopathy, lumbar region (principal); M47.816 Spondylosis without myelopathy or radiculopathy, lumbar region
CPT/HCPCS: 62282; 64635; 64636; J1030

== ENCOUNTER → 2022-09-20 14:20 | Outpatient (POV) | payer BC, SELFPAY ==
[2022-09-20 14:32] VITALS: BP 132/80; PULSE 71; RESP 18; O2SAT 96; BMI 26.6
--- NOTE | 2022-09-20 14:46 | EXP.PAIN.SOA ---
[facility] Pain Management SOAP Note Subjective:: Patient is a pleasant 62-year-old male who presents today for follow-up of medial branch block at L4-L5 and L5-S1 on 09/04/2022. We are currently treating the patient for degenerative disc disease of lumbar spine with lumbar facet arthropathy, lumbar spondylosis, lumbar radiculopathy symptoms, sacroiliitis today the patient states he had 100% relief of his pain along his right side however these injections did nothing for his left-sided pain. Patient states his pain is a 4 out of 10 today. Patient denies any new trauma or injury. Patient denies any change in location or type of pain he experiences. Patient states that his left side has always been his worst side. Patient states his pain goes from his low back along the left side down to his left heel. Patient has had multiple injections in the past as well as a left SI joint stabilization procedure in September 2021 and a lumbar RFA in November 2020. Patient states any prolonged standing or walking aggravates his pain. He does take ynri-fnq-bkvislv Tylenol that does provide significant improvement. Patient is also prescribed compounding cream that he uses daily to provide some additional relief. Patient was previously prescribed tramadol 50 mg twice a day with a 14-day supply however patient states he was unaware of this prescription and never picked it up at [facility] pharmacy. Patient does state that frequently this has happened before about not being notified about a prescription. His Jaden is [id number]. It has been reviewed and appropriate. Review of Systems: General: No recent weight changes, no fever, no sleep disturbances Respiratory: No cough, no shortness of air, no recurring pulmonary infections Cardiovascular/peripheral vascular: No chest pain, no palpitations, no edema, no shortness of breath Gastrointestinal: No new onset incontinence, normal bowel movements reported Genitourinary: No new onset incontinence Musculoskeletal: Low back pain, left leg pain Psychiatric: [Normal mood/affect] Neurological: [Denies weakness in extremities], [denies balance issues] Objective:: Physical Exam: General: Alert and oriented x3, no acute distress, pleasant and cooperative Lungs: Respirations even and unlabored, symmetrical chest expansion Eyes: PERRL Musculoskeletal: Flexion and extension of lumbar [spine] somewhat guarded secondary to pain, [antalgic gait noted] Neurological: Speech clear, no gross sensory deficit Assessment:: Degenerative disc disease of lumbar spine with lumbar radiculopathy symptoms, lumbar facet arthropathy, lumbar spondylosis, sacroiliitis Plan:: Patient continues to experience significant pain in his low back along the left side that radiates down his left leg to his heel. Patient did have limited range of motion of his lumbar spine during today's visit. I have recommended that the patient may benefit from a left transforaminal epidural steroid injection. Risk and benefits were discussed with the patient. He would like to proceed forward with this plan of care. Patient is not on any blood thinners. We will schedule the patient for a left transforaminal epidural steroid injection at L4-L5 and L5-S1. Patient has been instructed to contact the clinic with any concerns before the next appointment. Dr. Oreilly has reviewed this note and agrees with this plan of care. This note was dictated using voice recognition software and make contain errors or omissions. [facility] Medical History (Updated 09/04/22 @ 09:01 by Viri Mcgee RN) Degenerative disc disease Lumbar radiculopathy, chronic Surgical History (Updated 09/04/22 @ 09: by Viri Mcgee RN) No significant past surgical history Family History (Updated 09/04/22 @ 09: by Viri Mcgee RN) Other No significant family history Social History (Reviewed 09/04/22 @ 09: by Viri Mcgee RN) Smoking Status: Current every day smoker tobacco t
== END ==
PROVIDERS: Visit Provider Nurse Practitioner Family
DX: M51.16 Intervertebral disc disorders with radiculopathy, lumbar region (principal); M47.26 Other spondylosis with radiculopathy, lumbar region; M46.1 Sacroiliitis, not elsewhere classified; Z72.0 Tobacco use
CPT/HCPCS: 99212; G0463

== ENCOUNTER 2024-04-13 09:37 | Outpatient (POV) | payer MEDICARE, SELFPAY ==
[2024-04-13 10:14] VITALS: BP 122/78; PULSE 73; RESP 18; O2SAT 94; BMI 27.2
--- NOTE | 2024-04-13 10:40 | EXP.PAIN.SOA ---
[facility] Pain Management SOAP Note Subjective:: Patient is a pleasant 64-year-old male who presents today for follow-up. Today he rates his pain a 5 out of 10. Patient denies any new trauma or injury. Patient did last have a lumbar RFA bilaterally of L4-L5 and L5-S1 back in September 2022 that did provide upwards of 90% relief and has lasted over 16 months providing significant improvement. He states that this did allow him to be much more active and more functional with overall decreased pain. He does state today that the pain has started to come back over the last 6 weeks. He describes it as a aching, throbbing sensation with no radiating symptoms into his legs. He states the pain just stays there in his back and does interfere with his ability to perform activities of daily living such as cooking and cleaning. Patient does state he would like to repeat his prior injection because it did work so well. Patient has tried and failed conservative therapies in the past with continued at home exercising and stretching. He has been prescribed compounded cream in the past and is requesting refills. His Jaden has been reviewed and is appropriate. Review of Systems: General: No recent weight changes, no fever, no sleep disturbances Respiratory: No cough, no shortness of air, no recurring pulmonary infections Cardiovascular/peripheral vascular: No chest pain, no palpitations, no edema, no shortness of breath Gastrointestinal: No new onset incontinence, normal bowel movements reported Genitourinary: No new onset incontinence Musculoskeletal: Low back pain Psychiatric: [Normal mood/affect] Neurological: [Denies weakness in extremities], [denies balance issues] Objective:: Physical Exam: General: Alert and oriented x3, no acute distress, pleasant and cooperative Lungs: Respirations even and unlabored, symmetrical chest expansion Eyes: PERRL Musculoskeletal: Flexion and extension of lumbar [spine] somewhat guarded secondary to pain, [antalgic gait noted] positive Kemps test Neurological: Speech clear, no gross sensory deficit Assessment:: Degenerative disc disease of lumbar spine with lumbar facet arthropathy, lumbar spondylosis, sacroiliitis Plan:: Patient is experiencing worsening pain in his low back with limited range of motion and a positive Kemps test. Patient denies any radiating symptoms into his legs. Patient did previously have a lumbar RFA in September 2022 that did provide 90% relief and has lasted up until the last 6 weeks. I have reviewed over the risk and benefits of repeat lumbar RFA. Patient would like to proceed forward with this plan of care. I will also refill his compounded cream. Patient has tried and failed conservative therapies including continued at home exercising and stretching for longer than 6 weeks between injections. Patient will be scheduled for a lumbar RFA bilaterally L4-L5 and L5-S1 under fluoroscopy. Patient has been instructed to contact the clinic with any concerns before the next appointment. Dr. Oreilly has reviewed this note and agrees with this plan of care. This note was dictated using voice recognition software and make contain errors or omissions. [facility] Disclaimer: The information contained in this section may have been updated after the patient was seen, as this information can be updated by other users. Medical History (Updated 09/04/22 @ 09:01 by Viri Mcgee RN) Lumbar radiculopathy, chronic Degenerative disc disease Surgical History (Updated 09/04/22 @ 09:01 by Viri Mcgee RN) No significant past surgical history Family History (Updated 09/04/22 @ 09:01 by Viri Mcgee RN) Other No significant family history Social History Smoking Status: Current every day smoker tobacco type: cigarettes packs per day: 1 second hand exposure: No alcohol intake: current alcohol intake frequency: holidays/special occasions only substance use type: denies use current occupational status: employed Travel in the last 8 weeks: None household members: spouse housing: house current occupation: [employer] current occupational exposures/hazards: No caffeine: Yes
== END 2024-04-13 23:59 | disposition home or self-care (01) ==
LOC: SC.PAIN 09:40
PROVIDERS: Visit Provider Nurse Practitioner Family
DX: M51.36 Other intervertebral disc degeneration, lumbar region (principal); M47.896 Other spondylosis, lumbar region; M46.1 Sacroiliitis, not elsewhere classified
CPT/HCPCS: 99212; G0463

== ENCOUNTER 2024-04-28 13:49 | Day surgery (SDC) | payer MEDICARE, SELFPAY ==
[2024-04-28 14:03] VITALS: BP 124/76; PULSE 76; RESP 18; TEMP 36.9; O2SAT 96; BMI 27.2
--- NOTE | 2024-04-28 14:07 | P.PCN_ITS ---
Procedure Date: 04/28/24 Time: 14:00 Anesthesiologist:: Herve Rosas CRNA Complications:: None Pre-procedure Diagnosis:: Degenerative disc lumbar spine multilevels. Lumbar radiculopathy. Lumbar spondylosis. Multilevel lumbar facet arthropathy. Post-procedure Diagnosis:: Same. Indications for Procedure:: Patient is a pleasant 64-year-old male comes our clinic today for bilateral L4- 5, L5-S1 radiofrequency ablation. Patient has had 90+ percent improvement terms of his overall low back pain with previous lumbar medial branch blocks/facet injections at the same levels. He rates his pain today /10. Procedure Details:: Informed consent was obtained and the risk and benefits of the procedure was explained to the patient. Patient was placed prone on the procedure table. The patient was prepped and draped in sterile fashion. C-arm fluoroscopy was used to view the lumbar spine. The skin and subcutaneous tissues were anesthetized using lidocaine. I placed 20-gauge RF needles into the facet joints of L3-L4, L4-L5 and L5-S1 on the left side. We underwent sensory stimulation. There is good sensory stimulation at 0.8 V. We underwent motor stimulation. There is no motor stimulation at 2 V. We then anesthetized these levels with lidocaine and Depo- Medrol. I used a total of 40 mg Depo-Medrol for all 3 levels. I then burned all 3 levels of L3-L4, L4-5 and L5-S1 on the left side for 4 minutes at 80 ?C. Patient tolerated the procedure well with no complication. Plan and Disposition:: Patient was discharged without incident.
[2024-04-28 14:22] VITALS: BP 128/77; PULSE 73; RESP 18; O2SAT 96
[2024-04-28] MEDS: methylPREDNISolone ACETATE 80MG/ML VIAL 80 MG (14:42)
[2024-04-28] MEDS: BUPIVACAINE 0.25% 10ML INJ 25 MG IJ (14:42)
[2024-04-28] MEDS: LIDOCAINE 1% 5ML PF VIAL 15 ML (14:42)
[2024-04-28 14:43] VITALS: BP 134/79; PULSE 85; RESP 18; O2SAT 96
[2024-04-28 14:45] VITALS: BP 134/79; PULSE 85; RESP 18; O2SAT 96
== END 2024-04-28 14:22 | disposition home or self-care (01) ==
PROVIDERS: PCP Nurse Practitioner Family; Visit Provider Nurse Anesthetist, Certified Registered
DX: M47.816 Spondylosis without myelopathy or radiculopathy, lumbar region (principal); M51.16 Intervertebral disc disorders with radiculopathy, lumbar region
CPT/HCPCS: 64635; 64636; J1010

== ENCOUNTER 2024-05-21 10:54 | Outpatient (POV) | payer MEDICARE, SELFPAY ==
--- NOTE | 2024-05-21 11:39 | A.OFFVIS_ITS ---
[facility] Disclaimer: The information contained in this section may have been updated after the patient was seen, as this information can be updated by other users. 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 Patient rates his pain today in that area 1 out of 10. He states he has had at least 60% improvement and it still helping. Patient does however state he is experiencing more pain in 1 area of his low back going towards his buttocks area. Patient denies any new trauma or injury. He does rate the pain a 5 out of 10 and that it can be constant from 1 day to intermittent the next. He does state that the pain interferes with his ability perform activities of daily living and would like to see about injections for this area. Patient has been prescribed compounded cream and has tried and failed conservative therapy. His Jaden has been revi ewed and is appropriate. Review of Systems: General: No recent weight changes, no fever, no sleep disturbances Respiratory: No cough, no shortness of air, no recurring pulmonary infections Cardiovascular/peripheral vascular: No chest pain, no palpitations, no edema, no shortness of breath Gastrointestinal: No new onset incontinence, normal bowel movements reported Genitourinary: No new onset incontinence Musculoskeletal: Low back left-sided pain/left buttocks pain Psychiatric: [Normal mood/affect] Neurological: [Denies weakness in extremities], [denies balance issues] Pain at rest (0-10 scale): 5 Objective Objective:: Physical Exam: General: Alert and oriented x3, no acute distress, pleasant and cooperative Lungs: Respirations even and unlabored, symmetrical chest expansion Eyes: PERRL Musculoskeletal: Flexion and extension of lumbar [spine] somewhat guarded secondary to pain, [antalgic gait noted] point tenderness along left superior cluneal nerve area/SI with negative Rodolfo's Neurological: Speech clear, no gross sensory deficit Has patient had previous pain injection?: Yes Percent improvement in pain since last injection: 60% Conservative treatment options previously tried: Home exercise plan Length of treatment: Longer than 6 weeks Meds Home Medications and Allergies Home Medications Medication Instructions Recorded Confirmed Type ezetimibe 10 mg tablet 10 mg PO DAILY Cholesterol 12/04/19 04/28/24 History omeprazole 40 mg capsule,delayed 40 mg PO DAILY acid reflux' 12/04/19 04/28/24 History release tramadol 50 mg tablet 50 mg PO BID PRN pain #28 tabs 08/13/22 04/28/24 Rx New Prescriptions to Start Prescriptions: Allergies Allergy/AdvReac Type Severity Reaction Status Date / Time Tjtzihe-WQY-IsF Reductase Allergy Redness of Verified 09/04/22 09:02 Inhibitor Skin [Idiiedl-Lya-Pyp Reductase Inhibitor] amoxicillin AdvReac Verified 09/04/22 09:02 Sulfa (Sulfonamide AdvReac Gastrointestinal Verified 09/04/22 09:02 Antibiotics) Upset Assessment and Plan *Assessment and plan (1) Lumbar radiculopathy: Status: Chronic Category: Medical Code(s): M54.16 - Radiculopathy, lumbar region (2) Degenerative joint disease (DJD) of lumbar spine: Status: Chronic Qualifiers: Spinal osteoarthritis complication: with radiculopathy Qualified Code(s): M47.26 - Other spondylosis with radiculopathy, lumbar region Category: Medical Code(s): M47.816 - Spondylosis without myelopathy or radiculopathy, lumbar region (3) Left hip pain: Status: Acute Category: Medical Code(s): M25.552 - Pain in left hip (4) Nerve entrapment: Status: Acute Category: Medical Code(s): G58.9 - Mononeuropathy, unspecified Plan Patient is experiencing worsening pain in and around his left hip/buttocks area with point tenderness around the area of the left superior cluneal nerve and SI joint however patient had a negative Rodolfo's during today's visit. I did discuss with the patient due to these findings I would recommend possibly a left superior nerve block. Risk and benefits were discussed with patient and he would like to proceed forward with this plan of care. I have also counseled the patient to continue to use his compounded cream in this area as well. Patient is agreeable to this. Patient has tried and failed conservative therapy including continued at home stretching exercise for longer than 6 weeks. We will submit to insurance for the left superior cluneal nerve block Patient has been instructed to contact the clinic with any concerns before the next appointment. Dr. Oreilly has reviewed this note and agrees with this plan of care. This note was dictated using voice recognition software and make contain errors or omissions.
[2024-05-21 11:54] VITALS: BP 133/77; PULSE 66; RESP 18; O2SAT 94; BMI 26.6
== END 2024-05-21 23:59 | disposition home or self-care (01) ==
LOC: SC.PAIN 10:54
PROVIDERS: Visit Provider Nurse Practitioner Family
DX: M47.26 Other spondylosis with radiculopathy, lumbar region; M25.552 Pain in left hip
CPT/HCPCS: 99212; G0463

== ENCOUNTER 2024-06-02 14:19 | Day surgery (SDC) | payer MEDICARE, SELFPAY ==
[2024-06-02 14:35] VITALS: BP 117/75; PULSE 73; RESP 18; TEMP 36.7; O2SAT 96; BMI 27.1
--- NOTE | 2024-06-02 14:58 | EXP.PAIN.PRO ---
Procedure Date: 06/02/24 Time: 15:00 Anesthesiologist:: Herve Rosas CRNA Complications:: None Pre-procedure Diagnosis:: Left sacroiliitis. Degenerative disc lumbar spine multilevels. Lumbar radiculopathy. Lumbar spondylosis. Multilevel lumbar facet arthropathy. Post-procedure Diagnosis:: Same. Indications for Procedure:: Patient is a pleasant 64-year-old male comes our clinic today for left sacroiliac joint injection of cortisone. Patient has extreme point tenderness over the left sacroiliac joint. He presents with symptoms not limited to left posterior hip pain, low lumbar back pain isolated over the left sacroiliac joint. Patient also reports difficulty transitioning from sitting to standing. Walking up a ladder increases pain over the left sacroiliac joint. He rates his pain 6/10. Procedure Details:: Procedure: Left sacroiliac injection under fluoroscopy Informed consent was obtained and the risk and benefits of the procedure were explained to the patient.~ The patient was taken to the procedure room and noninvasive monitors were placed including noninvasive blood pressure cuff and pulse oximeter.~ The patient was placed prone on the procedure table.~ The~ left hip was cleansed using Betadine as a cleansing solution.~ C-arm fluorosocpy was used to view the left SI joint.~ The skin and subcutaneous tissues were anesthetized using Lidocaine 1.5% and a 25-gauge needle.~ After this, a 22-gauge spinal needle was inserted under fluoroscopic guidance into the inferior aspect of the left SI joint.~ Omnipaque dye was injected and a good spread was seen throughout the joint.~ After this, approximately 5 mL of bupivacaine 0.25% and Depo-Medrol 40 mg was incrementally injected into the sacroiliac joint.~ The patient tolerated the procedure well with no complications.~ The patient was observed in the Pain Clinic for a period of 30-45 minutes, then discharged home neurologically intact.~ Plan and Disposition:: Patient was reevaluated 10 minutes post procedure. He reports 100% relief in terms of his left sacroiliac joint pain. No pain with ambulation. No pain with squatting down. No pain with sitting and/or standing. No pain transitioning from sitting to standing. He will follow-up with us in the clinic.
[2024-06-02] MEDS: LIDOCAINE 1% 5ML PF VIAL 5 ML (15:00)
[2024-06-02] MEDS: methylPREDNISolone ACETATE 80MG/ML VIAL 80 MG (15:00)
[2024-06-02] MEDS: BUPIVACAINE 0.25% 10ML INJ 25 MG IJ (15:00)
[2024-06-02 15:04] VITALS: BP 131/73; PULSE 68; RESP 18; O2SAT 96
== END 2024-06-02 15:05 | disposition home or self-care (01) ==
PROVIDERS: PCP Nurse Practitioner Family; Visit Provider Nurse Anesthetist, Certified Registered
DX: M46.1 Sacroiliitis, not elsewhere classified (principal)
CPT/HCPCS: 27096; G0260; J1010

== ENCOUNTER 2024-06-22 10:45 | Outpatient (POV) | payer MEDICARE, SELFPAY ==
[2024-06-22 11:03] VITALS: BP 117/76; PULSE 68; RESP 18; O2SAT 94; BMI 27.1
--- NOTE | 2024-06-22 11:27 | EXP.PAIN.SOA ---
[facility] Disclaimer: The information contained in this section may have been updated after the patient was seen, as this information can be updated by other users. 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 Today he rates his pain a 2 out of 10. Patient states he did have at least 80% relief following this injection and feels like it is still continuing to provide additional relief. He states that the pain is not as severe and is much more manageable. His Jaden has been reviewed and is appropriate Review of Systems: General: No recent weight changes, no fever, no sleep disturbances Respiratory: No cough, no shortness of air, no recurring pulmonary infections Cardiovascular/peripheral vascular: No chest pain, no palpitations, no edema, no shortness of breath Gastrointestinal: No new onset incontinence, normal bowel movements reported Genitourinary: No new onset incontinence Musculoskeletal: Low back pain Psychiatric: [Normal mood/affect] Neurological: [Denies weakness in extremities], [denies balance issues] Pain at rest (0-10 scale): 2 Objective Objective:: Physical Exam: General: Alert and oriented x3, no acute distress, pleasant and cooperative Lungs: Respirations even and unlabored, symmetrical chest expansion Eyes: PERRL Musculoskeletal: Flexion and extension of lumbar [spine] somewhat guarded secondary to pain, [antalgic gait noted] Neurological: Speech clear, no gross sensory deficit Has patient had previous pain injection?: Yes Percent improvement in pain since last injection: 80% Conservative treatment options previously tried: Home exercise plan Length of treatment: Longer than 6 weeks Meds Home Medications and Allergies Home Medications ?Medication ?Instructions ?Recorded ?Confirmed ?Type ezetimibe 10 mg tablet 10 mg PO DAILY Cholesterol 12/04/19 06/22/24 History omeprazole 40 mg capsule,delayed 40 mg PO DAILY acid reflux' 12/04/19 06/22/24 History release tramadol 50 mg tablet 50 mg PO BID PRN pain #28 tabs 08/13/22 06/22/24 Rx New Prescriptions to Start Prescriptions: Allergies Allergy/AdvReac Type Severity Reaction Status Date / Time Fayfahv-HSE-KkB Reductase Allergy Redness of Verified 06/02/24 14:35 Inhibitor Skin [Qjhkaky-Kuj-Ces Reductase Inhibitor] amoxicillin AdvReac Verified 06/02/24 14:35 Sulfa (Sulfonamide AdvReac Gastrointestinal Verified 06/02/24 14:35 Antibiotics) Upset Assessment and Plan *Assessment and plan (1) Degenerative joint disease (DJD) of lumbar spine: Status: Chronic Qualifiers: Spinal osteoarthritis complication: with radiculopathy Qualified Code(s): M47.26 - Other spondylosis with radiculopathy, lumbar region Category: Medical Code(s): M47.816 - Spondylosis without myelopathy or radiculopathy, lumbar region (2) Nerve entrapment: Status: Acute Category: Medical Code(s): G58.9 - Mononeuropathy, unspecified (3) Left hip pain: Status: Acute Category: Medical Code(s): M25.552 - Pain in left hip Plan Patient has had significant improvement and does not require any additional injection therapy at this time. Patient will return to clinic in 1 month for reevaluation of symptoms and plan of care. Patient has been instructed to contact the clinic with any concerns before the next appointment. Dr. Oreilly has reviewed this note and agrees with this plan of care. This note was dictated using voice recognition software and make contain errors or omissions. All injections are used with Lidocaine or Bupivacaine and Depo Medrol.
== END 2024-06-22 23:59 | disposition home or self-care (01) ==
LOC: SC.PAIN 10:45
PROVIDERS: PCP Nurse Practitioner Family; Visit Provider Nurse Practitioner Family
DX: M47.26 Other spondylosis with radiculopathy, lumbar region (principal); G58.9 Mononeuropathy, unspecified; M25.552 Pain in left hip; F17.210 Nicotine dependence, cigarettes, uncomplicated
CPT/HCPCS: 99212; G0463

== ENCOUNTER 2024-07-22 10:21 | Outpatient (POV) | payer MEDICARE, SELFPAY ==
[2024-07-22 11:06] VITALS: BP 118/73; PULSE 64; RESP 16; O2SAT 93; BMI 26.6
--- NOTE | 2024-07-22 12:16 | EXP.PAIN.SOA ---
[facility] Disclaimer: The information contained in this section may have been updated after the patient was seen, as this information can be updated by other users. 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 Today he rates his pain a 4 out of 10 however states the pain will get at least a 5 or 6 out of 10 with increased activity. Patient denies any new trauma or injury. He does state that he is experiencing still the same pain he had before along the left side however he does also state that it does appear to be bothering him on the right side as well. Patient does describe this as an aching, throbbing sensation that is fairly constant and does interfere with his ability perform activities of daily living such as cooking and cleaning. Patient has tried and failed conservative therapy including continued at home stretching exercise for longer than 6 weeks. Patient has been using his compounded cream along with 2 Tylenol's to help somewhat. Patient is interested in repeating his prior injection that did provide 80% relief lasting more than a month of improvement. His Jaden has been reviewed and is appropriate. Review of Systems: General: No recent weight changes, no fever, no sleep disturbances Respiratory: No cough, no shortness of air, no recurring pulmonary infections Cardiovascular/peripheral vascular: No chest pain, no palpitations, no edema, no shortness of breath Gastrointestinal: No new onset incontinence, normal bowel movements reported Genitourinary: No new onset incontinence Musculoskeletal: Low back pain Psychiatric: [Normal mood/affect] Neurological: [Denies weakness in extremities], [denies balance issues] Pain at rest (0-10 scale): 5 Objective Objective:: Physical Exam: General: Alert and oriented x3, no acute distress, pleasant and cooperative Lungs: Respirations even and unlabored, symmetrical chest expansion Eyes: PERRL Musculoskeletal: Flexion and extension of lumbar [spine] somewhat guarded secondary to pain, [antalgic gait noted] point tenderness along bilateral superior cluneal nerve Neurological: Speech clear, no gross sensory deficit Has patient had previous pain injection?: No Conservative treatment options previously tried: Home exercise plan Length of treatment: Longer than 6 weeks Meds Home Medications and Allergies Home Medications ?Medication ?Instructions ?Recorded ?Confirmed ?Type ezetimibe 10 mg tablet 10 mg PO DAILY Cholesterol 12/04/19 07/22/24 History omeprazole 40 mg capsule,delayed 40 mg PO DAILY acid reflux' 12/04/19 07/22/24 History release tramadol 50 mg tablet 50 mg PO BID PRN pain #28 tabs 08/13/22 07/22/24 Rx New Prescriptions to Start Prescriptions: Allergies Allergy/AdvReac Type Severity Reaction Status Date / Time Ujravwq-BST-BwS Reductase Allergy Redness of Verified 06/02/24 14:35 Inhibitor Skin [Grvvtzx-Yvz-Doz Reductase Inhibitor] amoxicillin AdvReac Verified 06/02/24 14:35 Sulfa (Sulfonamide AdvReac Gastrointestinal Verified 06/02/24 14:35 Antibiotics) Upset Assessment and Plan *Assessment and plan (1) Nerve entrapment: Status: Acute Category: Medical Code(s): G58.9 - Mononeuropathy, unspecified (2) Degenerative joint disease (DJD) of lumbar spine: Status: Chronic Qualifiers: Spinal osteoarthritis complication: with radiculopathy Qualified Code(s): M47.26 - Other spondylosis with radiculopathy, lumbar region Category: Medical Code(s): M47.816 - Spondylosis without myelopathy or radiculopathy, lumbar region Plan Patient is experiencing worsening pain along his low back with point tenderness along his bilateral cluneal nerves. Patient did have limited range of motion of his lumbar spine. I did review over with the patient since he did so well with 80% relief with his last left superior cluneal nerve block in May that he may benefit from repeat injection bilaterally. Risk and benefits were discussed with patient and he would like to proceed forward with this plan of care. Patient has tried and failed conservative therapy including continued at home stretching exercise for longer than 6 weeks. We will schedule the patient for bilateral superior cluneal nerve blocks. Patient has been instructed to contact the clinic with any concerns before the next appointment. Dr. Oreilly has reviewed this note and agrees with this plan of care. This note was dictated using voice recognition software and make contain errors or omissions. All injections are used with Lidocaine or Bupivacaine and Depo Medrol.
== END 2024-07-22 23:59 | disposition home or self-care (01) ==
LOC: SC.PAIN 10:22
PROVIDERS: PCP Nurse Practitioner Family; Visit Provider Nurse Practitioner Family
DX: G58.9 Mononeuropathy, unspecified (principal); M47.26 Other spondylosis with radiculopathy, lumbar region; F17.210 Nicotine dependence, cigarettes, uncomplicated; Z73.89 Other problems related to life management difficulty
CPT/HCPCS: 99212; G0463

== ENCOUNTER 2024-08-11 10:01 | Day surgery (SDC) | payer MEDICARE, SELFPAY ==
[2024-08-11 10:53] VITALS: BP 121/77; BP 131/83; PULSE 70; RESP 16; TEMP 36.7; O2SAT 98; BMI 26.6
[2024-08-11] MEDS: LIDOCAINE 1% 5ML PF VIAL 5 ML (10:56)
[2024-08-11] MEDS: methylPREDNISolone ACETATE 80MG/ML VIAL 80 MG (10:56)
[2024-08-11] MEDS: BUPIVACAINE 0.25% 10ML INJ 25 MG IJ (10:56)
[2024-08-11 10:57] VITALS: BP 127/80; PULSE 67; RESP 18; O2SAT 97
[2024-08-11 10:59] VITALS: BP 127/80; PULSE 67; RESP 18; O2SAT 97
--- NOTE | 2024-08-11 11:01 | P.PCN_ITS ---
Procedure Date: 08/11/24 Time: 10:50 Anesthesiologist:: Herve Rosas CRNA Complications:: None Pre-procedure Diagnosis:: Bilateral sacroiliitis. Post-procedure Diagnosis:: Same. Indications for Procedure:: Patient is a pleasant 64-year-old male who comes our clinic today for bilateral cluneal nerve block. Also, I discussed with him injecting superior margin of bilateral sacroiliac joints with cortisone and local anesthetic. Patient reports significant improvement with his pain from previous sacroiliac joint injections. He rates his pain 7/10. Procedure Details:: Procedure: Bilateral sacroiliac joint injections under fluoroscopy Informed consent was obtained and the risks and benefits of the procedure were explained to the patient.~ The patient was taken to the procedure room and noninvasive monitors were placed including a noninvasive blood pressure cuff and pulse oximeter.~ The patient was placed prone on the procedure table. Both hips were cleansed using Betadine as a cleansing solution. C-arm fluoroscopy was used to view the right sacroiliac joint.~ The skin and subcutaneous tissues were anesthetized using lidocaine 1.5% and a 25-gauge needle.~ After this, a 22-gauge spinal needle was inserted under fluoroscopic guidance into the inferior aspect of the right sacroiliac joint.~ Omnipaque dye was injected and good spread was seen throughout the joint.~ After this, approximately 5 mL of bupivacaine, 0.25% and Depo-Medrol, 40 mg was incrementally injected into the right sacroiliac joint. We then moved to the left sacroiliac joint.~ The skin and subcutaneous tissues were anesthetized using lidocaine 1.5% and a 25-gauge needle.~ After this, a 22- gauge spinal needle was inserted under fluoroscopic guidance into the inferior aspect of the left sacroiliac joint.~ Omnipaque dye was injected and good spread was seen throughout the joint. After this, approximately 5 mL of bupivacaine, 0.25% and Depo-Medrol, 40 mg was incrementally injected into the left sacroiliac joint.~ The patient tolerated the procedure well with no complications. The patient was observed in the Pain Clinic and then was discharged home neurologically intact. Plan and Disposition:: Patient was discharged without incident.
== END 2024-08-11 11:07 | disposition home or self-care (01) ==
PROVIDERS: PCP Nurse Practitioner Family; Visit Provider Nurse Anesthetist, Certified Registered
DX: M46.1 Sacroiliitis, not elsewhere classified (principal)
CPT/HCPCS: 27096; G0260; J1010

== ENCOUNTER 2024-08-31 08:33 | Outpatient (POV) | payer MEDICARE, SELFPAY ==
--- NOTE | 2024-08-31 08:56 | A.OFFVIS_ITS ---
[facility] Disclaimer: The information contained in this section may have been updated after the patient was seen, as this information can be updated by other users. 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 Patient rates his pain today a 3 out of 10. He patient denies any new trauma or injury. Patient does rate improvement of about 75% or more and feels like it still helping. Patient states he has been able to move around easier with overall decreased pain. He states the left side is doing great however he will occasionally have a sharp pain along his right side with certain positions. He states he notices it more when he is scooting around however it is not constant and it does go away fairly quickly. Patient is prescribed compounded cream and denies any side effects from this medication. His Jaden has been reviewed and is appropriate. Review of Systems: General: No recent weight changes, no fever, no sleep disturbances Respiratory: No cough, no shortness of air, no recurring pulmonary infections Cardiovascular/peripheral vascular: No chest pain, no palpitations, no edema, no shortness of breath Gastrointestinal: No new onset incontinence, normal bowel movements reported Genitourinary: No new onset incontinence Musculoskeletal: Low back pain Psychiatric: [Normal mood/affect] Neurological: [Denies weakness in extremities], [denies balance issues] Pain at rest (0-10 scale): 3 Objective Objective:: Physical Exam: General: Alert and oriented x3, no acute distress, pleasant and cooperative Lungs: Respirations even and unlabored, symmetrical chest expansion Eyes: PERRL Musculoskeletal: Flexion and extension of lumbar [spine] somewhat guarded secondary to pain, [antalgic gait noted] Neurological: Speech clear, no gross sensory deficit Has patient had previous pain injection?: Yes Percent improvement in pain since last injection: More than 75% Conservative treatment options previously tried: Home exercise plan Length of treatment: Longer than 6 weeks Meds Home Medications and Allergies Home Medications ?Medication ?Instructions ?Recorded ?Confirmed ?Type ezetimibe 10 mg tablet 10 mg PO DAILY Cholesterol 12/04/19 07/22/24 History omeprazole 40 mg capsule,delayed 40 mg PO DAILY acid reflux' 12/04/19 07/22/24 History release tramadol 50 mg tablet 50 mg PO BID PRN pain #28 tabs 08/13/22 07/22/24 Rx New Prescriptions to Start Prescriptions: Allergies Allergy/AdvReac Type Severity Reaction Status Date / Time Pwyarjj-GXR-ObB Reductase Allergy Redness of Verified 06/02/24 14:35 Inhibitor Skin [Bebvvaq-Cib-Gab Reductase Inhibitor] amoxicillin AdvReac Verified 06/02/24 14:35 Sulfa (Sulfonamide AdvReac Gastrointestinal Verified 06/02/24 14:35 Antibiotics) Upset Assessment and Plan *Assessment and plan (1) Degenerative joint disease (DJD) of lumbar spine: Status: Chronic Qualifiers: Spinal osteoarthritis complication: with radiculopathy Qualified Code(s): M47.26 - Other spondylosis with radiculopathy, lumbar region Category: Medical Code(s): M47.816 - Spondylosis without myelopathy or radiculopathy, lumbar region Plan Patient has had significant improvement and does not require any additional injection therapy at this time. Patient will return to clinic in 2 months for reevaluation of symptoms and plan of care.\ Patient has been instructed to contact the clinic with any concerns before the next appointment. Dr. Oreilly has reviewed this note and agrees with this plan of care. This note was dictated using voice recognition software and make contain errors or omissions. All injections are used with Lidocaine or Bupivacaine and Depo Medrol.
[2024-08-31 09:28] VITALS: BP 121/74; PULSE 66; O2SAT 97; BMI 26.6
== END 2024-08-31 23:59 | disposition home or self-care (01) ==
LOC: SC.PAIN 08:36
PROVIDERS: PCP Nurse Practitioner Family; Visit Provider Nurse Practitioner Family
DX: M47.26 Other spondylosis with radiculopathy, lumbar region (principal); F17.210 Nicotine dependence, cigarettes, uncomplicated
CPT/HCPCS: 99212; G0463

== ENCOUNTER 2024-11-30 09:40 | Outpatient (POV) | payer MEDICARE, SELFPAY ==
--- NOTE | 2024-11-30 10:45 | EXP.PAIN.SOA ---
[facility] Disclaimer: The information contained in this section may have been updated after the patient was seen, as this information can be updated by other users. Medical History Lumbar radiculopathy, chronic Degenerative disc disease Surgical History No significant past surgical history Family History Other No significant family history Social History Smoking Status: Current every day smoker tobacco type: cigarettes packs per day: 1 second hand exposure: No alcohol intake: current alcohol intake frequency: holidays/special occasions only substance use type: denies use current occupational status: other Travel in the last 8 weeks: None household members: spouse housing: house current occupation: [employer] current occupational exposures/hazards: No caffeine: Yes PM Subjective & Objective Subjective Subjective:: Patient is a pleasant 64-year-old male who presents today for worsening back pain. He does rate his pain currently 4 out of 10 however states that we will get a 6 or more with increased activity. Patient does state that he is having it more severe on the right side but is starting to experience increased pain on the left side as well. He does feel like his last cluneal nerve block done in August has officially worn off. Patient states that he would like additional injection therapy because this did help so well. Patient has continued conservative treatment. Patient states the pain is an aching, throbbing sensation that is worse with increased activity and does interfere with his ability to perform activities of daily living such as cooking and cleaning. Patient is currently managed with compounded cream. His Jaden has been reviewed and is appropriate. Review of Systems: General: No recent weight changes, no fever, no sleep disturbances Respiratory: No cough, no shortness of air, no recurring pulmonary infections Cardiovascular/peripheral vascular: No chest pain, no palpitations, no edema, no shortness of breath Gastrointestinal: No new onset incontinence, normal bowel movements reported Genitourinary: No new onset incontinence Musculoskeletal: Low back pain Psychiatric: [Normal mood/affect] Neurological: [Denies weakness in extremities], [denies balance issues] Pain at rest (0-10 scale): 6 Objective Objective:: Physical Exam: General: Alert and oriented x3, no acute distress, pleasant and cooperative Lungs: Respirations even and unlabored, symmetrical chest expansion Eyes: PERRL Musculoskeletal: Flexion and extension of lumbar [spine] somewhat guarded secondary to pain, tenderness along bilateral cluneal nerves Neurological: Speech clear, no gross sensory deficit Has patient had previous pain injection?: No Conservative treatment options previously tried: Home exercise plan Length of treatment: Longer than 12 weeks Meds Home Medications and Allergies Home Medications ?Medication ?Instructions ?Recorded ?Confirmed ?Type ezetimibe 10 mg tablet 10 mg PO DAILY Cholesterol 12/04/19 08/31/24 History omeprazole 40 mg capsule,delayed 40 mg PO DAILY acid reflux' 12/04/19 08/31/24 History release tramadol 50 mg tablet 50 mg PO BID PRN pain #28 tabs 08/13/22 08/31/24 Rx New Prescriptions to Start Prescriptions: Allergies Allergy/AdvReac Type Severity Reaction Status Date / Time Tsrhzgf-WAO-SeX Reductase Allergy Redness of Verified 06/02/24 14:35 Inhibitor (Iflbqko-Vvl-Mtk Skin Reductase Inhibitor) amoxicillin AdvReac Verified 06/02/24 14:35 Sulfa (Sulfonamide AdvReac Gastrointestinal Verified 06/02/24 14:35 Antibiotics) Upset Assessment and Plan *Assessment and plan (1) Nerve entrapment: Status: Acute Category: Medical Code(s): G58.9 - Mononeuropathy, unspecified Plan Patient is starting to experience increased nerve pain with limited range of motion of his lumbar spine and point tenderness again along his bilateral cluneal nerves. I did discuss with the patient that I do believe he would benefit from repeat cluneal nerve blocks. Patient does agree with this plan of care. Patient has tried and failed conservative therapy including at home stretching exercise for longer than 12 weeks that was physician guided. Patient did get 75% relief with his last cluneal nerves on August 11. We will schedule the patient for bilateral cluneal nerve blocks. Patient has been instructed to contact the clinic with any concerns before the next appointment. Dr. Oreilly has reviewed this note and agrees with this plan of care. This note was dictated using voice recognition software and make contain errors or omissions. All injections are used with Lidocaine, Bupivacaine and Depo Medrol. Occasionally urine drug screen is needed to verify patient's compliance with our office pain contract. This is ordered based off specific treatments related to chronic pain with the potential to abuse certain medications.
[2024-11-30 11:22] VITALS: BP 129/70; PULSE 70; RESP 16; O2SAT 96; BMI 26.9
== END 2024-11-30 23:59 | disposition home or self-care (01) ==
LOC: SC.PAIN 09:41
PROVIDERS: PCP Nurse Practitioner Family; Visit Provider Nurse Practitioner Family
DX: G58.9 Mononeuropathy, unspecified (principal); F17.210 Nicotine dependence, cigarettes, uncomplicated; Z73.89 Other problems related to life management difficulty
CPT/HCPCS: 99212; G0463

== ENCOUNTER 2024-12-08 11:51 | Day surgery (SDC) | payer MEDICARE, SELFPAY ==
[2024-12-08 12:08] VITALS: BP 136/69; PULSE 78; RESP 16; TEMP 36.8; O2SAT 94; BMI 26.9
[2024-12-08 12:11] VITALS: BP 134/80; PULSE 95; RESP 18; O2SAT 94
[2024-12-08] MEDS: LIDOCAINE 1% 5ML PF VIAL 5 ML (12:11)
[2024-12-08] MEDS: BUPIVACAINE 0.25% 10ML INJ 25 MG IJ (12:11)
[2024-12-08] MEDS: methylPREDNISolone ACETATE 80MG/ML VIAL 80 MG (12:11)
[2024-12-08 12:12] VITALS: BP 134/80; PULSE 78; RESP 18; O2SAT 94
[2024-12-08 12:18] VITALS: BP 124/75; PULSE 78; RESP 16; O2SAT 93
--- NOTE | 2024-12-08 12:18 | EXP.PAIN.PRO ---
Procedure Date: 12/08/24 Time: 11:55 Anesthesiologist:: Herve Rosas CRNA Complications:: None Pre-procedure Diagnosis:: Bilateral sacroiliitis. Bilateral posterior hip pain. Post-procedure Diagnosis:: Same. Indications for Procedure:: Patient is a very pleasant 64-year-old male who comes our clinic today for bilateral cluneal nerve blocks. Patient has responded well to this injection in the past. He describes bilateral posterior hip pain. Bilateral buttock pain. Low lumbar back pain off the midline bilaterally. He rates his pain right side 8/10. Left side 3/10. Procedure Details:: Patient is a pleasant 64-year-old male who comes our clinic today for bilateral cluneal nerve blocks. Details of the procedure was explained to the patient. The patient taken procedure and placed in prone position on fluoroscopy table. The area over the low lumbar was cleaned using chlorhexidine as a cleansing solution. Using fluoroscopy guidance a 22-gauge 3 and half inch needle was used to access the right posterior rim of the iliac crest. After negative aspiration 3 cc of 1% lidocaine and 40 mg of Depo-Medrol was injected. The same procedure was carried over the left posterior rim of the iliac crest. Patient tolerated procedure without difficulty. There are no complications. Plan and Disposition:: Patient was discharged without incident.
== END 2024-12-08 12:18 | disposition home or self-care (01) ==
PROVIDERS: PCP Nurse Practitioner Family; Visit Provider Nurse Anesthetist, Certified Registered
DX: M46.1 Sacroiliitis, not elsewhere classified (principal); M25.551 Pain in right hip; M25.552 Pain in left hip
CPT/HCPCS: 64450; 77002; J1010

== ENCOUNTER 2024-12-25 14:02 | Outpatient (POV) | payer MEDICARE, SELFPAY ==
--- NOTE | 2024-12-25 14:07 | A.OFFVIS_ITS ---
[facility] Disclaimer: The information contained in this section may have been updated after the patient was seen, as this information can be updated by other users. Medical History Lumbar radiculopathy, chronic Degenerative disc disease Surgical History No significant past surgical history Family History Other No significant family history Social History Smoking Status: Current every day smoker tobacco type: cigarettes packs per day: 1 second hand exposure: No alcohol intake: current alcohol intake frequency: holidays/special occasions only substance use type: denies use current occupational status: other Travel in the last 8 weeks: None household members: spouse housing: house current occupation: [employer] current occupational exposures/hazards: No caffeine: Yes PM Subjective & Objective Subjective Subjective:: Patient is a pleasant 64-year-old male who presents today for follow-up of bilateral cluneal nerve blocks on 12/08/2024. Today he rates his pain a 2 out of 10. He denies any new trauma or injury. Patient states he has had approximately 75 percent improvement following this injection. He does state that he has had improvement along both his hips following this procedure however is complaining now of more leg issues with numbness and tingling that primarily goes down the entire left leg to his foot. He does state that it is fairly constant but is worse with increased activity. He does state the pain is interfering with his ability to perform activities of daily living such as cooking and cleaning. He ranks that pain at least a 5 out of 10 and states that it will go up to a 10 out of 10. Patient is prescribed compounded cream from our office. He denies any other changes from our last appointment. Patient has seen neurosurgery in the past and was not a surgical candidate at that time. His Jaden has been reviewed and is appropriate. Review of Systems: General: No recent weight changes, no fever, no sleep disturbances Respiratory: No cough, no shortness of air, no recurring pulmonary infections Cardiovascular/peripheral vascular: No chest pain, no palpitations, no edema, no shortness of breath Gastrointestinal: No new onset incontinence, normal bowel movements reported Genitourinary: No new onset incontinence Musculoskeletal: Low back pain, bilateral leg pain Psychiatric: [Normal mood/affect] Neurological: [Denies weakness in extremities], [denies balance issues] Pain at rest (0-10 scale): 5 Objective Objective:: Physical Exam: General: Alert and oriented x3, no acute distress, pleasant and cooperative Lungs: Respirations even and unlabored, symmetrical chest expansion Eyes: PERRL Musculoskeletal: Flexion and extension of lumbar [spine] somewhat guarded secondary to pain, [antalgic gait noted] positive left leg raise Neurological: Speech clear, no gross sensory deficit Has patient had previous pain injection?: Yes Percent improvement in pain since last injection: 75% Conservative treatment options previously tried: Home exercise plan Length of treatment: Longer than 12 weeks Meds Home Medications and Allergies Home Medications ?Medication ?Instructions ?Recorded ?Confirmed ?Type ezetimibe 10 mg tablet 10 mg PO DAILY Cholesterol 12/04/19 12/25/24 History omeprazole 40 mg capsule,delayed 40 mg PO DAILY acid reflux' 12/04/19 12/25/24 History release tramadol 50 mg tablet 50 mg PO BID PRN pain #28 tabs 08/13/22 12/25/24 Rx New Prescriptions to Start Prescriptions: Allergies Allergy/AdvReac Type Severity Reaction Status Date / Time Irifkak-LTZ-IlJ Reductase Allergy Redness of Verified 12/25/24 14:17 Inhibitor (Qjvxegb-Rac-Tth Skin Reductase Inhibitor) amoxicillin AdvReac Unknown Verified 12/25/24 14:17 allergy reaction Sulfa (Sulfonamide AdvReac Gastrointestinal Verified 12/25/24 14:17 Antibiotics) Upset Assessment and Plan *Assessment and plan (1) Lumbar radiculopathy: Status: Chronic Category: Medical Code(s): M54.16 - Radiculopathy, lumbar region (2) Degenerative joint disease (DJD) of lumbar spine: Status: Chronic Qualifiers: Spinal osteoarthritis complication: with radiculopathy Qualified Code(s): M47.26 - Other spondylosis with radiculopathy, lumbar region Category: Medical Code(s): M47.816 - Spondylosis without myelopathy or radiculopathy, lumbar region (3) Nerve entrapment: Status: Acute Category: Medical Code(s): G58.9 - Mononeuropathy, unspecified Plan Patient is experiencing worsening pain in his low back with numbness and tingling into his left leg down to the foot. Patient did have limited range of motion of his lumbar spine with a positive leg raise. I did discuss with patient that I do believe they would benefit from a lumbar epidural steroid injection. Risk and benefits were discussed with patient and the patient would like to proceed forward with this plan of care. Patient is not on any blood thinners. Patient has tried and failed conservative therapy including continued at home stretching exercise for longer than 12 weeks between injections. Patient did previously have a lumbar epidural back in January 2020 that provided 60 to 70% relief and lasted longer than 3 months. Patient has not required any additional epidurals since that appointment. We will schedule the patient for an LESI L4-L5 under fluoroscopy. Will also send in tizanidine 4 mg at bedtime with a 14-day supply of this medication. Patient agrees with this plan of care. Patient has been instructed to contact the clinic with any concerns before the next appointment. Dr. Oreilly has reviewed this note and agrees with this plan of care. This note was dictated using voice recognition software and make contain errors or omissions. All injections are used with Lidocaine, Bupivacaine and Depo Medrol. Occasionally urine drug screen is needed to verify patient's compliance with our office pain contract. This is ordered based off specific treatments related to chronic pain with the potential to abuse certain medications.
[2024-12-25 14:16] VITALS: BP 132/85; PULSE 71; RESP 16; TEMP 36.4; O2SAT 95; BMI 26.6
== END 2024-12-25 23:59 | disposition home or self-care (01) ==
PROVIDERS: PCP Nurse Practitioner Family; Visit Provider Nurse Practitioner Family
DX: M47.26 Other spondylosis with radiculopathy, lumbar region (principal); G58.9 Mononeuropathy, unspecified; Z73.89 Other problems related to life management difficulty
CPT/HCPCS: 99212; G0463

== ENCOUNTER 2025-01-19 13:41 | Day surgery (SDC) | payer MEDICARE, SELFPAY ==
[2025-01-19 13:55] VITALS: BP 137/68; PULSE 97; RESP 16; TEMP 36.8; O2SAT 93; BMI 26.6
--- NOTE | 2025-01-19 14:14 | EXP.PAIN.PRO ---
Procedure Date: 01/19/25 Time: 14:00 Anesthesiologist:: Herve Rosas CRNA Complications:: None Pre-procedure Diagnosis:: Degenerative disc lumbar spine multilevel. Lumbar radiculopathy. Post-procedure Diagnosis:: Same. Indications for Procedure:: Patient is a very pleasant 64-year-old male who comes our clinic today for lumbar epidural steroid injection. Patient describes low lumbar back pain as constant, dull, aching. Right side greater than left. Also bilateral leg radicular symptoms at times. He rates his pain 6/10. Procedure Details:: Procedure: Lumbar epidural steroid injection under fluoroscopy Informed consent was obtained and the risks and benefits of the procedure were explained to the patient. The patient was taken to the procedure room and noninvasive monitors placed, including noninvasive blood pressure cuff and pulse oximeter. The back was viewed using C-arm Fluoroscopy and prepped using Chloraprep as a cleansing solution and the L4-L5 interspace was palpated. Skin and subcutaneous tissues were anesthetized using lidocaine 1.5% and a 25-gauge needle. After this, an 18-gauge Touhy epidural needle was placed into the L4-L5 interspace and advanced using fluoroscopic guidance and loss of resistance to air until the epidural space was encountered. After confirmation of needle placement in the epidural space, with dye, a solution containing normal saline, 3 mL and Depo-Medrol 80 mg were incrementally injected into the lumbar epidural space. The patient tolerated the procedure well with no complications. The patient was observed in the Pain Clinic and then discharged home neurologically intact. Plan and Disposition:: Patient was discharged without incident.
[2025-01-19 14:15] VITALS: BP 125/78; PULSE 79; RESP 16; O2SAT 93
[2025-01-19 14:24] VITALS: BP 137/68; PULSE 97; RESP 18; O2SAT 97
[2025-01-19 14:30] VITALS: BP 137/68; PULSE 97; RESP 18; O2SAT 97
== END 2025-01-19 14:15 | disposition home or self-care (01) ==
PROVIDERS: PCP Nurse Practitioner Family; Visit Provider Nurse Anesthetist, Certified Registered
DX: M51.16 Intervertebral disc disorders with radiculopathy, lumbar region (principal)
CPT/HCPCS: 62323; J1010

== ENCOUNTER 2025-02-08 11:20 | Outpatient (POV) | payer MEDICARE, SELFPAY ==
--- NOTE | 2025-02-08 11:21 | A.OFFVIS_ITS ---
[facility] Disclaimer: The information contained in this section may have been updated after the patient was seen, as this information can be updated by other users. 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 Today he rates his pain a 2 out of 10. He denies any new injury or trauma. Patient does state that he has had approximately 80 percent improvement following these injections. Patient is prescribed compounded cream from our office and tizanidine 4 mg at bedtime. He denies any side effects. His Jaden has been reviewed and is appropriate. Review of Systems: General: No recent weight changes, no fever, no sleep disturbances Respiratory: No cough, no shortness of air, no recurring pulmonary infections Cardiovascular/peripheral vascular: No chest pain, no palpitations, no edema, no shortness of breath Gastrointestinal: No new onset incontinence, normal bowel movements reported Genitourinary: No new onset incontinence Musculoskeletal: Low back pain Psychiatric: [Normal mood/affect] Neurological: [Denies weakness in extremities], [denies balance issues] Pain at rest (0-10 scale): 2 Objective Objective:: Physical Exam: General: Alert and oriented x3, no acute distress, pleasant and cooperative Lungs: Respirations even and unlabored, symmetrical chest expansion Eyes: PERRL Musculoskeletal: Flexion and extension of lumbar [spine] somewhat guarded secondary to pain Neurological: Speech clear, no gross sensory deficit Has patient had previous pain injection?: Yes Percent improvement in pain since last injection: 80% Conservative treatment options previously tried: Home exercise plan Length of treatment: Longer than 12 weeks Meds Home Medications and Allergies Home Medications ?Medication ?Instructions ?Recorded ?Confirmed ?Type ezetimibe 10 mg tablet 10 mg PO DAILY Cholesterol 12/04/19 02/08/25 History omeprazole 40 mg capsule,delayed 40 mg PO DAILY acid reflux' 12/04/19 02/08/25 History release tramadol 50 mg tablet 50 mg PO BID PRN pain #28 tabs 08/13/22 02/08/25 Rx tizanidine 4 mg tablet (Zanaflex) 4 mg PO HS #14 tabs 12/25/24 02/08/25 Rx New Prescriptions to Start Prescriptions: Allergies Allergy/AdvReac Type Severity Reaction Status Date / Time Uhyugoz-UCM-CkG Reductase Allergy Redness of Verified 12/25/24 14:17 Inhibitor (Wkxohwr-Yie-Zcz Skin Reductase Inhibitor) amoxicillin AdvReac Unknown Verified 12/25/24 14:17 allergy reaction Sulfa (Sulfonamide AdvReac Gastrointestinal Verified 12/25/24 14:17 Antibiotics) Upset Assessment and Plan *Assessment and plan (1) Nerve entrapment: Status: Acute Category: Medical Code(s): G58.9 - Mononeuropathy, unspecified (2) Left hip pain: Status: Acute Category: Medical Code(s): M25.552 - Pain in left hip (3) Lumbar radiculopathy: Status: Chronic Category: Medical Code(s): M54.16 - Radiculopathy, lumbar region (4) Degenerative joint disease (DJD) of lumbar spine: Status: Chronic Qualifiers: Spinal osteoarthritis complication: with radiculopathy Qualified Code(s): M47.26 - Other spondylosis with radiculopathy, lumbar region Category: Medical Code(s): M47.816 - Spondylosis without myelopathy or radiculopathy, lumbar region Plan Patient has had significant improvement following his lumbar epidural and does not require any additional injection therapy. We did discuss in future if he ends up still only getting more temporary relief with this injection we can order updated advanced imaging to see if there are new changes of his low back. Patient will return to clinic in 6 weeks. Patient has been instructed to contact the clinic with any concerns before the next appointment. Dr. Oreilly has reviewed this note and agrees with this plan of care. This note was dictated using voice recognition software and make contain errors or omissions. All injections are used with Lidocaine, Bupivacaine and Depo Medrol. Occasionally urine drug screen is needed to verify patient's compliance with our office pain contract. This is ordered based off specific treatments related to chronic pain with the potential to abuse certain medications.
[2025-02-08 11:52] VITALS: BP 128/72; PULSE 76; RESP 14; O2SAT 95; BMI 27.4
== END 2025-02-08 23:59 | disposition home or self-care (01) ==
PROVIDERS: PCP Nurse Practitioner Family; Visit Provider Nurse Practitioner Family
DX: G58.9 Mononeuropathy, unspecified (principal); M25.552 Pain in left hip; M47.26 Other spondylosis with radiculopathy, lumbar region; F17.210 Nicotine dependence, cigarettes, uncomplicated
CPT/HCPCS: 99212; G0463

== ENCOUNTER 2025-03-22 11:20 | Outpatient (POV) | payer MEDICARE, SELFPAY ==
--- NOTE | 2025-03-22 11:59 | EXP.PAIN.SOA ---
[facility] Disclaimer: The information contained in this section may have been updated after the patient was seen, as this information can be updated by other users. 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 Today he rates his pain a 2 out of 10. He denies any new trauma or injury. He does state overall he is still doing really well from his lumbar epidural steroid injection L4-L5 there on January 19 with 80% relief. Patient is prescribed compounded cream and tizanidine 4 mg from our office. He denies any side effects. His Jaden has been reviewed and is appropriate. Review of Systems: General: No recent weight changes, no fever, no sleep disturbances Respiratory: No cough, no shortness of air, no recurring pulmonary infections Cardiovascular/peripheral vascular: No chest pain, no palpitations, no edema, no shortness of breath Gastrointestinal: No new onset incontinence, normal bowel movements reported Genitourinary: No new onset incontinence Musculoskeletal: Low back pain Psychiatric: [Normal mood/affect] Neurological: [Denies weakness in extremities], [denies balance issues] Pain at rest (0-10 scale): 2 Objective Objective:: Physical Exam: General: Alert and oriented x3, no acute distress, pleasant and cooperative Lungs: Respirations even and unlabored, symmetrical chest expansion Eyes: PERRL Musculoskeletal: Flexion and extension oflumbar[spine] somewhat guarded secondary to pain, [antalgic gait noted] Neurological: Speech clear, no gross sensory deficit Has patient had previous pain injection?: No Conservative treatment options previously tried: Home exercise plan Length of treatment: Longer than 12 weeks Meds Home Medications and Allergies Home Medications ?Medication ?Instructions ?Recorded ?Confirmed ?Type ezetimibe 10 mg tablet 10 mg PO DAILY Cholesterol 12/04/19 02/08/25 History omeprazole 40 mg capsule,delayed 40 mg PO DAILY acid reflux' 12/04/19 02/08/25 History release tramadol 50 mg tablet 50 mg PO BID PRN pain #28 tabs 08/13/22 02/08/25 Rx tizanidine 4 mg tablet (Zanaflex) 4 mg PO HS #14 tabs 12/25/24 02/08/25 Rx New Prescriptions to Start Prescriptions: Allergies Allergy/AdvReac Type Severity Reaction Status Date / Time Cztyrgu-HWQ-ItG Reductase Allergy Redness of Verified 12/25/24 14:17 Inhibitor (Glextew-Qqq-Ljw Skin Reductase Inhibitor) amoxicillin AdvReac Unknown Verified 12/25/24 14:17 allergy reaction Sulfa (Sulfonamide AdvReac Gastrointestinal Verified 12/25/24 14:17 Antibiotics) Upset Assessment and Plan *Assessment and plan (1) Lumbar radiculopathy: Status: Chronic Category: Medical Code(s): M54.16 - Radiculopathy, lumbar region (2) Degenerative joint disease (DJD) of lumbar spine: Status: Chronic Qualifiers: Spinal osteoarthritis complication: with radiculopathy Qualified Code(s): M47.26 - Other spondylosis with radiculopathy, lumbar region Category: Medical Code(s): M47.816 - Spondylosis without myelopathy or radiculopathy, lumbar region Plan Patient continues to do well and does not require any additional injection therapy at this time. Patient will return to clinic in 3 months. Patient has been instructed to contact the clinic with any concerns before the next appointment. Dr. Oreilly has reviewed this note and agrees with this plan of care. This note was dictated using voice recognition software and make contain errors or omissions. All injections are used with Lidocaine, Bupivacaine and dexamethasone. Occasionally urine drug screen is needed to verify patient's compliance with our office pain contract. This is ordered based off specific treatments related to chronic pain with the potential to abuse certain medications.
[2025-03-22 13:12] VITALS: BP 117/75; PULSE 73; RESP 18; O2SAT 92; BMI 27.1
== END 2025-03-22 23:59 | disposition home or self-care (01) ==
PROVIDERS: PCP Nurse Practitioner Family; Visit Provider Nurse Practitioner Family
DX: M47.26 Other spondylosis with radiculopathy, lumbar region (principal); F17.210 Nicotine dependence, cigarettes, uncomplicated
CPT/HCPCS: 99212; G0463

== ENCOUNTER 2025-06-21 10:13 | Outpatient (POV) | payer MEDICARE, SELFPAY ==
--- OUTSIDE RECORDS SUMMARY | 2025-06-21 10:16 | XMS_ITS | Clinical Summary ---
Author Organization [facility] Address [address] [place] [address] Care Team Providers Care Data Communications Technician Name Role Phone Saul Fleming Amaral FREEDOM Primary Care Provi carline Allergies Active Allergy Reactions Criticality Noted Date Comments Amoxicillin Other (See Comments) Medium 12/26/2022 Causes thrush in mouth Doxycycline Nausea And Vomiting Medium 11/20/2018 Nsaids Other (See Comments),Myalgia Low 12/03/2017 Blood in urine with NSAIDS Statins Myalgia Low 08/23/2017 Sulfa Antibiotics GI Intolerance Low 08/23/2017 Medications Flaxseed, Linseed, (FLAX SEEDS PO) Take 1 capsule by mouth Daily. Active ezetimibe (ZETIA) 10 MG tablet Take 10 mg by mouth Every Morning. 3 09/21/2018 Active dicyclomine (BENTYL) 20 MG tablet Take 20 mg by mouth 2 (Two) Times a Day As Needed. Active tadalafil (ADCIRCA) 20 MG tablet tablet Take 5 mg by mouth Daily. One tablet daily as needed for 14 days Active levocetirizine (XYZAL) 5 MG tablet Take 5 mg by mouth Every Evening. Active pantoprazole (PROTONIX) 40 MG EC tablet Take 40 mg by mouth Daily. Active Fluticasone-Ume clidin-Vilant (Trelegy Ellipta) 100-62.5-25 MCG/ACT inhaler Inhale 1 puff Daily. Active ondansetron (Zofran) 4 MG tablet Take 1 tablet by mouth Every 8 (Eight) Hours As Needed for Nausea or Vomiting. 12 tablet 01/01/2023 11:34 AM EST 01/01/2023 Active docusate sodium (COLACE) 100 MG capsule Take 1 capsule by mouth 2 (Two) Times a Day. 20 capsule 01/01/2023 11:34 AM EST 01/01/2023 Active HYDROcodone-ailyn taminophen (NORCO) 7.5-325 MG per tabletIndicatio ns:Traumatic complete tear of right rotator cuff, initial encounter Take 1-2 tablet(s) by mouth Every 4 (Four) Hours As Needed for Moderate Pain. 24 tablet 01/01/2023 11:34 AM EST 01/01/2023 Active docusate sodium (Colace) 100 MG capsule Take 1 capsule by mouth 2 (Two) Times a Day. 20 capsule 06/27/2023 3:21 PM EDT 06/27/2023 Active HYDROcodone-ailyn taminophen (NORCO) 7.5-325 MG per tabletIndicatio ns:Olecranon bursitis, right elbow Take 1 tablet by mouth Every 4 (Four) Hours As Needed for Mild Pain or Moderate Pain. 8 tablet 06/27/2023 3:21 PM EDT 06/27/2023 Active ondansetron (Zofran) 4 MG tablet Take 1 tablet by mouth Every 8 (Eight) Hours As Needed for Nausea or Vomiting. 12 tablet 06/27/2023 3:21 PM EDT 06/27/2023 Active Active Problems No known active problems Social History Tobacco Use Types Packs/Day Years Used Date Smoking Tobacco: Every Day Cigarettes 1 38 Smokeless Tobacco: Never Tobacco Cessation:Ready to Q uit: Not Asked; Counseling Given: Not Answered Alcohol Use Standard Drinks/Week Comments No 0 (1 standard drink = 0.6 oz pur e alcohol) rare AUDIT-C Answer Date Recorded Frequency of Alcohol Consumption Never 11/20/2018 Average Number of Drinks Not on file 019 Frequency of Binge Drinking Not on file 11/04 Abuse Screen Answer Date Recorded Unsafe at Home or Work/School Not on file Feels Threatened by Someone? Not on file 08/2024 Does Anyone Keep You from Co ntacting Others or Doint Things Outside the Home? Not on file 01/12/2024 Physical Sign of Abuse Present Not on file 0 01/12/2024 Housing Stability Answer Date Recorded Current Living Arrangements Not on file 01/02 Potentially Unsafe Housing Conditions Not on marco antonio e 01/12/2024 Family and Community Support Answer Roosevelt e Recorded Help with Day-to-Day Activities Not on file 08/14/2023 Lonely or Isolated Not on file 08/14/2023 Employment Answer Date Recorded Do you want help finding or keeping work or a jerri b? Not on file 08/14/2023 Disabilities Answer Date Recorded Concentrating, Remembering, or Making Decisions Difficulty Not on file 01/12/2024 Doing Errands Independently Difficulty Not on fi le 01/12/2024 Education Answer Date Recorded Help with school or training? Not on file Preferred Language Not on file 12/28/2023 Sex and Gender Information Value Date Recorded Sex Assigned at Not on file Legal Sex Male 5:49 PM EDT Gender Identity Not on file Sexual Orientation Not on file Last Filed Vital Signs Vital Sign Reading Time Taken Comments Blood Pressure 98/51 01/01/2023 11:10 AM EST Pulse 71 01/01/2023 11:10 AM EST Temperature 36.7 C (98 F) 01/01/2023 11:10 AM EST Respiratory Rate 16 01/01/2023 11:10 AM EST Oxygen Saturation 96% 01/01/2023 11:10 AM EST Inhaled Oxygen Concentration - - Weight 71.8 kg (158 lb 4.6 oz) 12/26/2022 1:06 P M EST Height 167.6 cm (5' 6 ) 12/26/2022 1:06 PM EST Body Mass Index 25.55 12/26/2022 1:06 PM EST Plan of Treatment Health Maintenance Due Date Last Done Comments COLOGUARD 2004 COLON CANCER SCREENING 5 YEA R SIGMOIDOSCOPY 2004 COLONOSCOPY 2004 [address] CANCER SCREENING 2004 CT COLONOGRAPHY 2004 FECAL OCCULT BLOOD TEST 2004 FIT Testing (1 year) 2004 ANNUAL PHYSICAL 08/23/2017 HEPATITIS C SCREENING 08/23/2017 Pneumococcal Vaccine 50+ (2 of 2 - PCV) 01/06/2021 0 01/07/2020 AAA SCREEN ONCE 2024 COVID-19 Vaccine ( season) 2024 INFLUENZA VACCINE 08/04/2025 TDAP/TD VACCINES (3 - Td or Tdap) 02/17/2029 019, 12/01/1998 ZOSTER VACCINE Completed 06/02/2022, 11/18/2021 Medical Devices Implanted Type Area Level Vial Grinder Device Identifier Shelf Expiration Date Model / Serial / Lot Sut/Anch Healix Adv Br W/Dynacord 4.5mm - [id number] Implanted:Qty: 1 on 01/01/2023 by Ayan Adam Jr., MD at [facility] Implant Right: Shoulder DEPUY MITEK [id number] 12/04/2024 [id number] / / [id number] Sut/Anch Healixadvance Br Dynatape 5.5mm Blk/Vance Wht/Vance/Grn - [id number] Implanted:Qty: 1 on 01/01/2023 by Ayan Adam Jr., MD at [facility] Implant Right: Shoulder DEPUY MITEK [id number] 12/04/2023 [id number] / / [id number] Sut/Anch Healixadvance Br W/Dynatape 5.5mm Wht/Blk Vance - [id number] Implanted:Qty: 1 on 01/01/2023 by Ayan Adam Jr., MD at [facility] Implant Right: Shoulder DEPUY MITEK [id number] 12/04/2023 [id number] / / [id number] Sut/Anch Knotlss Healicoil Regenesorb 5.5mm - [id number] Implanted:Qty: 3 on 01/01/2023 by Ayan Adam Jr., MD at [facility] Implant Right: Shoulder [employer] [id number] 08/17/2025 [id number] / / [id number] Kt Anch Shldr Tenolok Tenodesis W/Drl/Bit 7.5mm - [id number] Implanted:Qty: 1 on 01/01/2023 by Ayan Adam Jr., MD at [facility] Implant Right: Shoulder CONMED JONAS [id number] 09/17/2025 [id number] / / [id number] Insurance [employer] [id number] [place] [address] [facility] PPO Care Teams Data Communications Technician Relationship Specialty Start Date End Date Saul Fleming APRN [address] [place] [address] MARLEN DIALLO [id number] PCP - General Nurse Practitioner 12/26/22
[2025-06-21 10:29] VITALS: BP 123/73; PULSE 69; RESP 16; O2SAT 93; BMI 26.0
--- NOTE | 2025-06-21 10:40 | EXP.PAIN.SOA ---
[facility] Disclaimer: The information contained in this section may have been updated after the patient was seen, as this information can be updated by other users. 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 Today he rates his pain a 3 out of 10. He denies any new trauma or injury. He states overall he still been doing really well. He had his last epidural steroid injection of L4-L5 in January with 80% relief. Patient does state he has noticed on days that he does a lot more activity that he will notice worsening pain at night and will sometimes keep him up. He states that he still uses his cream and it does help. Patient was prescribed tizanidine 4 mg in the past however states that he has not been using that as of lately. His Jaden has been reviewed and is appropriate. Review of Systems: General: No recent weight changes, no fever, no sleep disturbances Respiratory: No cough, no shortness of air, no recurring pulmonary infections Cardiovascular/peripheral vascular: No chest pain, no palpitations, no edema, no shortness of breath Gastrointestinal: No new onset incontinence, normal bowel movements reported Genitourinary: No new onset incontinence Musculoskeletal: Low back pain Psychiatric: [Normal mood/affect] Neurological: [Denies weakness in extremities], [denies balance issues] Pain at rest (0-10 scale): 3 Objective Objective:: Physical Exam: General: Alert and oriented x3, no acute distress, pleasant and cooperative Lungs: Respirations even and unlabored, symmetrical chest expansion Eyes: PERRL Musculoskeletal: Flexion and extension of lumbar [spine] somewhat guarded secondary to pain, [antalgic gait noted] Neurological: Speech clear, no gross sensory deficit Has patient had previous pain injection?: No Conservative treatment options previously tried: Home exercise plan Length of treatment: Longer than 12 weeks Meds Home Medications and Allergies Home Medications ?Medication ?Instructions ?Recorded ?Confirmed ?Type ezetimibe 10 mg tablet 10 mg PO DAILY Cholesterol 12/04/19 03/22/25 History omeprazole 40 mg capsule,delayed 40 mg PO DAILY acid reflux' 12/04/19 03/22/25 History release tramadol 50 mg tablet 50 mg PO BID PRN pain #28 tabs 08/13/22 03/22/25 Rx tizanidine 4 mg tablet (Zanaflex) 4 mg PO HS #14 tabs 12/25/24 03/22/25 Rx New Prescriptions to Start Prescriptions: Allergies Allergy/AdvReac Type Severity Reaction Status Date / Time [id number] Reductase Allergy Redness of Verified 12/25/24 14:17 Inhibitor (Dwdbwnh-Mxd-Bui Skin Reductase Inhibitor) amoxicillin AdvReac Unknown Verified 12/25/24 14:17 allergy reaction Sulfa (Sulfonamide AdvReac Gastrointestinal Verified 12/25/24 14:17 Antibiotics) Upset Assessment and Plan *Assessment and plan (1) Lumbar radiculopathy: Status: Chronic Category: Medical Code(s): M54.16 - Radiculopathy, lumbar region (2) Degenerative joint disease (DJD) of lumbar spine: Status: Chronic Qualifiers: Spinal osteoarthritis complication: with radiculopathy Qualified Code(s): M47.26 - Other spondylosis with radiculopathy, lumbar region Category: Medical Code(s): M47.816 - Spondylosis without myelopathy or radiculopathy, lumbar region Plan I did discuss with the patient that I will increase his concentration of his compounded cream and send in refills of the tizanidine 4 mg. I have recommended him to try the muscle relaxer at night and see if this does ease down some of that pain and allow him to sleep better. Patient will return to clinic in 3 months. Patient has been instructed to contact the clinic with any concerns before the next appointment. Dr. Oreilly has reviewed this note and agrees with this plan of care. This note was dictated using voice recognition software and make contain errors or omissions. All injections are used with Lidocaine, Bupivacaine and dexamethasone. Occasionally urine drug screen is needed to verify patient's compliance with our office pain contract. This is ordered based off specific treatments related to chronic pain with the potential to abuse certain medications.
== END 2025-06-21 23:59 | disposition home or self-care (01) ==
LOC: SC.PAIN 10:14
PROVIDERS: PCP Nurse Practitioner Family; Visit Provider Nurse Practitioner Family
DX: M47.26 Other spondylosis with radiculopathy, lumbar region (principal); Z79.899 Other long term (current) drug therapy
CPT/HCPCS: 99212; G0463